=== PATIENT | female | born 1940 | race Caucasian/White ===

== ENCOUNTER → 2022-03-05 | Outpatient (CLI) | payer MEDICARE | END | disposition home or self-care (01) | LOC: LABPAT 10:48 | PROVIDERS: ATTEND Orthopaedic Surgery | DX: Z01.812 Encounter for preprocedural laboratory examination (principal); Z22.322 Carrier or suspected carrier of Methicillin resistant Staphylococcus aureus; M19.012 Primary osteoarthritis, left shoulder | CPT/HCPCS: 87070 ==

== ENCOUNTER 2022-04-15 05:53 | Observation (INO) | payer MEDICARE ==
[2022-04-11 15:21] VITALS: BMI 26.2
--- NOTE | 2022-04-14 11:19 | HP ---
HISTORY AND PHYSICAL CHIEF COMPLAINT: Left shoulder pain. HISTORY OF PRESENT ILLNESS: The patient is an 82-year-old [id number] retired female who presents with progressive left shoulder pain for the past several years, worsening recently. She is having a difficult time trying to do any overhead activity. She also notes significant weakness and significant night symptoms. She has tried medications in addition to injections and previous exercises, without much relief. She notes daily pain that limits her significantly. PAST MEDICAL HISTORY: Significant for hypertension, hypercholesterolemia along with arthritis. PAST SURGICAL HISTORY: Significant for right total shoulder arthroplasty, section and appendectomy. CURRENT MEDICATIONS: Aleve, aspirin, atorvastatin, lisinopril, omeprazole and alendronate. ALLERGIES: SHE NOTED ALLERGIES TO PENICILLIN. FAMILY HISTORY: Significant for cancer. SOCIAL HISTORY: Negative for current tobacco or alcohol use. REVIEW OF SYSTEMS: Sixteen-point review of systems otherwise reviewed and is noncontributory. PHYSICAL EXAMINATION: On examination, the patient is approximately 4 feet 11 inches, 130 pounds of mesomorphic habitus. HEENT exam is nonfocal. Neck is supple. On examination of her left shoulder, she is tender about the anterior subacromial space and glenohumeral joint. She has moderate subacromial crepitus. Active range of motion: Forward elevation 60 degrees, external rotation with the arm at side 10 degrees, internal rotation to L4. Motor strength 3+/5 for abduction and external rotation. Impingement test, Neer test, and Speed test are positive. Her distal neurovascular exam appears intact in the left upper extremity. X-rays to include AP, outlet and axillary lateral views of the left shoulder show severe glenohumeral joint osteoarthrosis with subchondral sclerosis along with cystic changes along the greater tuberosity. The humeral head to acromial distance appears to be diminished. IMPRESSION: Left rotator cuff arthropathy/severe glenohumeral joint osteoarthrosis. RECOMMENDATIONS: I talked to the patient at length regarding her condition along with treatment options. At this point she is quite symptomatic and limited, having both pain and weakness despite attempted conservative measures. After thorough discussion, she opts to proceed with surgery. We will plan to proceed with left reverse total shoulder arthroplasty. We will likely keep the patient for a 23-hour hold postoperatively. Risks and benefits were discussed at length in layman's terms. MMODL / IJN: [id number] /
[~2022-04-15 05:53] MED LIST: ACETAMINOPHEN TAB 500 MG TAB PO PRN; MELOXICAM 7.5 MG TAB PO PRN; TRANEXAMIC ACID IN NACL,ISO-OS 1,000 MG in SALINE 1 100ML.BAG IVPB PRN
[2022-04-15] MEDS ORDERED: LIDOCAINE 1% (10MG/ML) FOR IV START INTRADERMA PRN (05:58)
[2022-04-15] MEDS ORDERED: ONDANSETRON 4 MG/2 ML VIAL IVP ONE ×2 (05:58→06:57)
[2022-04-15] MEDS ORDERED: HYDROmorphone 0.5 MG/0.5 ML SYRINGE IVP PRN (05:58)
[2022-04-15] MEDS ORDERED: MIDAZOLAM 2 MG/2 ML VIAL IV PRN (05:58)
[2022-04-15] MEDS ORDERED: DEXAMETHASONE SOD PHOSPHATE 4 MG/ML 1 ML VIAL IV ONE (05:58)
[2022-04-15] MEDS: LACTATED RINGERS 1,000 ML IV SCH ×2 (06:46→23:57)
[2022-04-15] MEDS ORDERED: DEXAMETHASONE SOD PHOSPHATE 4 MG/ML 1 ML VIAL IVP ONE (06:57)
[2022-04-15] MEDS ORDERED: MIDAZOLAM 2 MG/2 ML VIAL IVP ONE ×3 (07:09→07:24)
[2022-04-15] MEDS ORDERED: IV FLUID CONTINUATION 1,000 ML IV ONE (07:45)
--- NOTE | 2022-04-15 08:06 | P.ANPRN ---
Procedure Note - Anesthesia - Nerve Block Performed Left Interscalene Single Time Out Performed: Yes Date of Procedure: 04/15/22 Procedure Start Time: :08 Procedure Stop Time: :18 Location of Patient: PreOp Indication: Requested by Surgeon Specifically requested for management of pain by DrMook: Conor Resendiz Sedation Type: Sedate with meaningful contact maintained Preparation: Sterile Prep Position: Supine Needle Types: Pajunk Needle Gauge: 21 Ultrasound used to visualize needle placement: Yes Ultrasound used to observe medication spread: Yes Injectate: 0.5% Ropivacaine (see comment for volume) (25 ml) Blood Aspirated: No Pain Paresthesia on Injection Noted: No Resistance on Injection: Normal Image Stored and Saved: Yes Events: Other (see comment) (Please refer to the note dictated separately)
--- NOTE | 2022-04-15 08:08 | P.PN ---
Progress Note - Text Progress Note Date: 04/15/22 Immediately after I finished the interscalene block,at 07:20 patient became unresponsive, and she started having seizure, patient received 1 mg of Versed in the preop to do the interscalene block, and she was communicating with us during the procedure, and immediately after we finished ,the patient became unresponsive, and she started having seizure, we immediately placed a #100% oxygen, vital signs heart rate is sinus tachycardia with heart rate more than 130, blood pressure more than 130/80, saturation more than 95% , patient received 2 mg of Versed followed with another 2 mg later on. To stop the seizure activity, patient immediately intubated, and placed on 100% oxygen, intralipids was available ,but it was not used because patient was hemodynamically stable, except the sinus tachycardia, discussed with the family that incident, and explained to them that the patient will be admitted ,and we will Place neurology consultation, patient was transferred to recovery room and she was placed on the ventilator ,and then she was extubated at 07:59, patient was following commands . Patient will be transferred to the floor
--- NOTE | 2022-04-15 11:25 | P.PN ---
Progress Note - Text Progress Note Date: 04/15/22 Patient's left shoulder procedure was canceled for today due to the adverse outcomes after the patient received the interscalene block. Anesthesia was able to follow with the patient in the preop/phase I area. Patient is being admitted to the cardiac stepdown unit for observation with telemetry monitoring. Consults have been placed for both internal medicine and neurology for assessment. Anticipate primary admission to be transferred to internal medicine. We will follow the patient during her inpatient stay. Please contact our service with any further questions.
--- NOTE | 2022-04-15 15:16 | P.CONS ---
History of Present Illness - Reason for Consult Consult date: 04/15/22 Medical management, intraoperative seizure activity - History of Present Illness This is a pleasant 82-year-old female who was recently brought in under orthopedic services for an elective left shoulder total arthroplasty with Dr. Resendiz. Apparently patient was in the preop phase and working on receiving a nerve block to the left shoulder and stopped responding to verbal stimuli and started actively seizing and bit her tongue and was minimally responsive with PURCHASING AND CLAIMS SUPERVISOR at the bedside. She received 2 doses of Versed and seizure activity stopped and surgical procedure was aborted. Patient was intubated and closely monitored and extubated successfully. Patient does have a past medical history of hypertension, high cholesterol, gastroesophageal reflux disease, osteoarthritis and follows with Dr. Noelle Soto in the outpatient setting. Patient was admitted for further evaluation with neurology placed on consult. Review Of Systems: Constitutional: No fever, no chills, no night sweats. No weight change. No wea kness, fatigue or lethargy. No daytime sleepiness. EENT: No headache. No blurred vision or double vision, no loss of vision. No loss of Hearing, no ringing in the ears, no dizziness. No nasal drainage or congestion. No epistaxis. No sore throat. Lungs: No shortness of breath, cough, no sputum production. No wheezing. Cardiovascular: No chest pain, no lower extremity edema. No palpitations. No paroxysmal nocturnal dyspnea. No orthopnea. No lightheadedness or dizziness. No syncopal episodes. Abdominal: No abdominal pain. No nausea, vomiting. No diarrhea. No constipation. No bloody or tarry stools.. No loss of appetite. Genitourinary: No dysuria, increased frequency, urgency. No urinary retention. Musculoskeletal: No myalgias. No muscle weakness, no gait dysfunction, no terell quent falls. No back pain. No neck pain. Integumentary: No wounds, no lesions. No rash or pruritus. No unusual bruising. No change in hair or nails. Neurologic: No aphasia. No facial droop. No change in mentation. No head injury. No headache. No paralysis. No paresthesia. Reports some left neck discomfort on palpation Psychiatric: No depression. No anxiety. No mood swings. Endocrine: No abnormal blood sugars. No weight change. No excessive sweating or thirst. No cold intolerance. Rest of the 14 point review of systems were negative except for mentioned above PHYSICAL EXAMINATION: GENERAL: The patient is alert and oriented x4, Well developed, well nourished. HEENT: Pupils are round and equally reacting to light. EOMI. no scleral icterus. No conjunctival pallor. Normocephalic, atraumatic. No pharyngeal erythema. No thyromegaly. Tongue was bit but no active bleeding noted CARDIOVASCULAR: S1 and S2 muffled PULMONARY: diminished breath sounds bilaterally with no wheezing or rhonchi noted. ABDOMEN: soft. Nontender on exam. non-distended, normoactive bowel sounds. No palpable organomegaly. MUSCULOSKELETAL: No joint swelling or deformity. EXTREMITIES: No cyanosis, clubbing, or pedal edema. NEUROLOGICAL: Gross neurological examination did not reveal any focal deficits. SKIN: No rashes. Assessment: Left rotator cuff arthropathy secondary to severe glenohumeral joint osteoarthritis Seizure like activity after receiving nerve block during preop for left shoulder surgery this morning with no history of seizures Hypertension Hyperlipidemia Osteoarthritis GI prophylaxis DVT prophylaxis Full code Plan: Recommend to continue with current medications and management per orthopedic services. Patient was scheduled for left shoulder arthroplasty with Dr. Resendiz this morning and was receiving nerve block and started having seizure-like activity with no past medical history of seizures and required 2 doses of Versed and in that time patient had been intubated and successfully extubated and admitted under orthopedic services with neurology consulted for this seizure- like activity. Patient is alert and oriented 3 and denies loss of bowel or urine incontinence. Patient reports she had a good night of sleep last night and was nothing by mouth at midnight and denies any history of hypoglycemia and was fine this morning on arrival to the hospital. Patient does follow with Dr. Noelle Soto in the outpatient setting. Patient did not have any of her medications this morning and she normally takes a blood pressure pill, a statin, and a baby aspirin and these were held this morning. Will resume diet and appropriate home medications and continue to hold blood pressure medications for now and closely monitor with vital signs every shift and will follow-up with some labs BMP and CBC and magnesium and diet has been resumed. Patient reports she will be following up in the next 2-3 weeks outpatient for surgical intervention again. We will continue to follow with orthopedics during this hospitalization. Thank you for this consultation. Await neurology evaluation. The impression and plan of care has been dictated by Falguni Gifford, nurse practitioner as directed. Dr. Danette MD I have performed a history and examination and MDM of this patient, discussed the same with the dictator, and agree with the dictator's assessment and plan as written ,documented as a scribe. Based on total visit time, I have performed more than 50% of the visit. Any additional findings or plans will be noted. Past Medical History Past Medical History: GERD/Reflux, Hyperlipidemia, Hypertension, Osteoarthritis (OA) History of Any Multi-Drug Resistant Organisms: None Reported Past Surgical History: Appendectomy, Breast Surgery, Section, Joint Replacement Additional Past Surgical History / Comment(s): 10/21/16 total R shoulder arthroplasty. RT BREAST BX, COLONOSCOPY, BILAT CATARACTS REMOVED Past Anesthesia/Blood Transfusion Reactions: No Reported Reaction Additional Past Anesthesia/Blood Transfusion Reaction / Comm: Nerve block caused possible seizure. Smoking Status: Former smoker - Past Family History Father Family Medical History: Cancer Additional Family Medical History / Comment(s): LUNG Mother Family Medical History: Osteoarthritis (OA) Medications and Allergies Home Medications Medication Instructions Recorded Confirmed Type Cholecalciferol [Vitamin D3] 2,000 unit PO DAILY 10/14/16 04/15/22 History Multivitamins, Thera [Multivitamin] 1 tab PO DAILY 10/14/16 04/15/22 History Omeprazole [PriLOSEC] 20 mg PO DAILY 10/14/16 04/15/22 History Aspirin [Adult Low Dose Aspirin EC] 81 mg PO DAILY 04/11/22 04/15/22 History Atorvastatin [Lipitor] 20 mg PO HS 04/11/22 04/15/22 History Lisinopril-Hctz 20-12.5 mg 0.5 tab PO HS 04/11/22 04/15/22 History [Zestoretic 20-12.5] Naproxen Sodium [Aleve] 220 mg PO Q12HR 04/11/22 04/15/22 History Turmeric Root Extract [Turmeric] 500 mg PO DAILY 04/11/22 04/15/22 History Allergies Allergy/AdvReac Type Severity Reaction Status Date / Time Penicillins Allergy Anaphylaxis Verified 04/15/22 06:28 red,yellow,blue dye Allergy Unknown Uncoded 04/15/22 06:28 Physical Exam Vitals: Vital Signs Temp Pulse Resp BP Pulse Ox FiO2 04/15/22 11:02 97.9 F 88 18 116/71 95 04/15/22 10:30 82 16 123/56 99 04/15/22 10:00 89 16 119/56 100 04/15/22 09:14 86 16 104/59 99 04/15/22 08:59 88 16 102/59 98 04/15/22 08:44 93 16 105/55 98 04/15/22 08:29 92 16 113/55 99 04/15/22 08:14 87 16 126/63 100 04/15/22 07:59 112 H 18 144/66 100 04/15/22 07:48 100 04/15/22 07:45 108 H 16 172/77 100 04/15/22 07:40 118 H 148/68 100 04/15/22 07:35 123 H 157/72 100 04/15/22 07:32 120 H 147/70 100 04/15/22 07:27 121 H 157/83 98 04/15/22 07:25 104 H 137/63 97 04/15/22 07:23 126 H 148/98 100 04/15/22 06:30 98.0 F 70 14 118/57 99 Intake and Output 04/14/22 04/15/22 04/15/22 22:59 06:59 14:59 Intake Total 750 Balance 750 Intake: IV 750 Other: Weight 60 kg 60 kg Assessment and Plan Time with Patient: Greater than 30
[2022-04-15 15:35] LABS: Basophils % (A) 0 %; Eosinophils % (A) 0 %; HCT 35.5 % (34.0-46.0); Lymphocytes % (A) 17 %; MCH 33.4 pg (25.0-35.0); MCHC 33.7 g/dL (31.0-37.0); MCV 99.1 fL (80.0-100.0); Macrocytosis Slight; Mean Platelet Volume 7.2; Monocytes # (A) 0.1 k/uL (0-1.0); Monocytes % (A) 2 %; Neutrophils # (A) 4.7 k/uL (1.3-7.7); Neutrophils % (A) 80 %; Platelet Count 340 k/uL (150-450); RBC 3.58 m/uL (3.80-5.40); RDW 14.8 % (11.5-15.5); WBC 5.8 k/uL (3.8-10.6)
[2022-04-15 15:51] LABS: Calcium 8.9 mg/dL (8.4-10.2); Magnesium 1.9 mg/dL (1.6-2.3); Potassium 4.7 mmol/L (3.5-5.1)
--- NOTE | 2022-04-15 17:21 | P.CNNES ---
History of Present Illness Consult date: 04/15/22 Requesting physician: Kevin Marino Reason for Consult: seizure History of Present Illness: This is a 82-year-old woman arthritis of bilateral disorder, syncope was recently brought under orthopedic service for elective left shoulder total arthroplasty and it seems while the patient was receiving her block to the left shoulder she stopped responding and was actively seizing and bit his tongue and was minimally responsive with SETTER COLD ROLLING MACHINE at bedside. Some of the history is obtained from medical record the. The patient is accompanied with her daughter was at bedside. According to patient she denies any history of seizures and then that today and she was getting the nerve block to the left shoulder she was told she had a seizure but she does not recall the event. All she knows is that her left side of the tongue is sore area according to the anesthesiologist he reported that the patient the finish that interscalene block at 7:20 AM today then became unresponsive and started having seizure. It is reported the patient received 2 mg of Versed followed by another 2 mg later on as a result patient's was immedi ately intubated and placed on 100% oxygen. The surgical procedure was aborted because of her seizure. The patient was monitored and was extubated successfully. Of note the patient states that currently her entire body feels sore. She denies any history of seizures as the reported earlier but stated that she had a syncopal episode in last one was about 10 years ago and this happens going from sitting or lying to standing position. She denies any family history of seizures. She denies any history of stroke or TIAs in the past. She rarely drinks alcohol. Denies any illicit drug use. Review of Systems Review of system: The 12 point system was reviewed and apparent positive and negative per HPI. Past Medical History Past Medical History: GERD/Reflux, Hyperlipidemia, Hypertension, Osteoarthritis (OA) History of Any Multi-Drug Resistant Organisms: None Reported Past Surgical History: Appendectomy, Breast Surgery, Section, Joint Replacement Additional Past Surgical History / Comment(s): 10/21/16 total R shoulder arthroplasty. RT BREAST BX, COLONOSCOPY, BILAT CATARACTS REMOVED Past Anesthesia/Blood Transfusion Reactions: No Reported Reaction Additional Past Anesthesia/Blood Transfusion Reaction / Comment(s): Nerve block caused possible seizure. Smoking Status: Former smoker - Past Family History Father Family Medical History: Cancer Additional Family Medical History / Comment(s): LUNG Mother Family Medical History: Osteoarthritis (OA) Medications and Allergies Home Medications Medication Instructions Recorded Confirmed Type Cholecalciferol [Vitamin D3] 2,000 unit PO DAILY 10/14/16 04/15/22 History Multivitamins, Thera [Multivitamin] 1 tab PO DAILY 10/14/16 04/15/22 History Omeprazole [PriLOSEC] 20 mg PO DAILY 10/14/16 04/15/22 History Aspirin [Adult Low Dose Aspirin EC] 81 mg PO DAILY 04/11/22 04/15/22 History Atorvastatin [Lipitor] 20 mg PO HS 04/11/22 04/15/22 History Lisinopril-Hctz 20-12.5 mg 0.5 tab PO HS 04/11/22 04/15/22 History [Zestoretic 20-12.5] Naproxen Sodium [Aleve] 220 mg PO Q12HR 04/11/22 04/15/22 History Turmeric Root Extract [Turmeric] 500 mg PO DAILY 04/11/22 04/15/22 History Allergies Allergy/AdvReac Type Severity Reaction Status Date / Time Penicillins Allergy Anaphylaxis Verified 04/15/22 06:28 red,yellow,blue dye Allergy Unknown Uncoded 04/15/22 06:28 Physical Examination - Vital Signs Vital Signs: Vital Signs Temp Pulse Resp BP Pulse Ox FiO2 04/15/22 15:01 97.9 F 76 18 92/77 95 04/15/22 13:34 88 04/15/22 11:02 97.9 F 88 18 116/71 95 04/15/22 10:30 82 16 123/56 99 04/15/22 10:00 89 16 119/56 100 04/15/22 09:14 86 16 104/59 99 04/15/22 08:59 88 16 102/59 98 04/15/22 08:44 93 16 105/55 98 04/15/22 08:29 92 16 113/55 99 04/15/22 08:14 87 16 126/63 100 04/15/22 07:59 112 H 18 144/66 100 04/15/22 07:48 100 04/15/22 07:45 108 H 16 172/77 100 04/15/22 07:40 118 H 148/68 100 04/15/22 07:35 123 H 157/72 100 05/24/22 07:32 120 H 147/70 100 04/15/22 07:27 121 H 157/83 98 04/15/22 07:25 104 H 137/63 97 04/15/22 07:23 126 H 148/98 100 04/15/22 06:30 98.0 F 70 14 118/57 99 Intake and Output 04/15/22 04/15/22 04/15/22 06:59 14:59 22:59 Intake Total 750 Balance 750 Intake: IV 750 Other: Voiding Method Toilet # Voids 1 Weight 60 kg 60 kg GENERAL: The patient is lying in bed and is not in acute distress. CHEST: The heart rate is regular rate rhythm. No murmurs to auscultation. LUNG: Clear to auscultation bilaterally no wheezing noted throughout. Not labored breathing. ABDOMEN/GI: Bowel sounds present in all 4 quadrants. No tenderness to palpation throughout. NEUROLOGICAL: Higher mental function: The patient is awake, alert, oriented to self, place and time. Patient is following commands. No aphasia and no neglect. Cranial nerves: The pupils are round, equal and reactive to light and accommodation. Visual mcclain are full to confrontation throughout. Extraocular movement is intact no nystagmus is noted. Facial sensation is normal to touch throughout. The facial strength is normal throughout. Hearing is normal bilaterally to hand rub. Tongue is midline and moved [id number] without any difficulty. No dysarthria is noted. Shoulder shrug is normal bilaterally. Motor: The strength is left upper extremity is 4+ and limited because of shoulder limitation. Normal bilateral hand bridge inspector. Otherwise 5 over 5 throughout. Normal tone and bulk. Cerebellum: Normal finger to nose heel to chin bilaterally. Sensation: Sensation is normal to touch throughout. Reflexes (right/left):1+ throughout. Plantars are downgoing bilaterally. Results - Laboratory Findings CBC and BMP: 04/15/22 15:07 04/15/22 15:07 Abnormal Lab Findings: Abnormal Labs 04/15/22 04/15/22 15:07 15:07 RBC 3.58 L Sodium 134 L BUN 27 H Glucose 178 H Assessment and Plan Assessment: New onset seizure (reported after completion of nerve block to shoulder). Seems provoked. Does not have history of seizures Syncope (last syncope was 10 years) Arthritis of bilateral disorder s/p surgery of the right shoulder Plan: I ordered a CT of the head without contrast, a routine EEG. I'll not start the patient on antiepileptic drug unless there is a performed discharges or seizure on the EEG or if there is any significant abnormality on the CAT scan which would lead to seizure. Ordered carotid duplex. Ordered orthostatic vitals. Every 4 hours neuro checks On seizure because his seizure pads We'll defer the rest of the medical management to the primary team as well as orthopedic team. The plan is discussed with the patient and her daughter was at bedside. Thank you for the consultation. Russell Seaman M.D. Neuro-hospitalist Time with Patient: Greater than 30
[2022-04-15] MEDS ORDERED: ACETAMINOPHEN TAB 325 MG TAB PO PRN (19:47)
--- NOTE | 2022-04-15 19:47 | CT ---
EXAMINATION TYPE: CT brain wo con DATE OF EXAM: 04/15/2022 COMPARISON: None HISTORY: Seizure, dizziness CT DLP: 1086.4 mGycm Automated exposure control for dose reduction was used. There is mild cerebral atrophy. There is no mass effect or midline shift. No sign of intracranial hem orrhage. Calvarium is intact. Skull base is intact. There is normal aeration of the mastoid sinuses. IMPRESSION: Negative unenhanced head CT scan. Brain appears normal for age.
[2022-04-15] MEDS ORDERED: ATORVASTATIN 20 MG TAB PO SCH (21:00)
[2022-04-16 08:37] VITALS: BP 112/70; PULSE 80; RESP 16; TEMP 97.8
[2022-04-16] MEDS ORDERED: ASPIRIN 81 MG PO SCH (09:00)
[2022-04-16] MEDS ORDERED: PANTOPRAZOLE 40 MG TABLET PO SCH (09:00)
--- NOTE | 2022-04-16 10:20 | P.PN ---
Subjective Progress Note Date: 04/16/22 Principal diagnosis: Seizure Patient evaluated today at bedside, she is resting comfortably. She is very eager to be discharged home. She's had no acute events overnight. She has been evaluated by both internal medicine and neurology. Objective - Vital Signs Vital signs: Vital Signs Temp 97.8 F 04/16/22 08:00 Pulse 80 04/16/22 08:00 Resp 16 04/16/22 08:00 BP 112/70 04/16/22 08:00 Pulse Ox 82 L 04/16/22 08:00 FiO2 100 04/15/22 07:48 Intake & Output 04/15/22 04/16/22 04/16/22 18:59 06:59 18:59 Intake Total 750 Balance 750 Weight 60 kg Intake: IV 750 Other: Voiding Method Toilet Toilet # Voids 1 2 - Labs CBC & Chem 7: 04/15/22 15:07 04/15/22 15:07 Labs: Abnormal Lab Results - Last 24 Hours (Table) 04/15/22 04/15/22 Range/Units 15:07 15:07 RBC 3.58 L (3.80-5.40) m/uL Sodium 134 L (137-145) mmol/L BUN 27 H (7-17) mg/dL Glucose 178 H (74-99) mg/dL Assessment and Plan Assessment: Seizure Left shoulder rotator cuff arthropathy with severe glenohumeral joint arthritis Other medical comorbidities Plan: Discussed with patient at discharge and be pending neurology/internal medicine recommendations. She is scheduled to undergo a EEG along with carotid study later today. Recommending follow-up with Dr. Resendiz in the outpatient setting after discharge to discuss surgical scheduling We'll discuss with internal medicine primary admission Please contact our service with any questions Time with Patient: Less than 30
--- NOTE | 2022-04-16 11:35 | P.PN ---
Subjective Progress Note Date: 04/16/22 The patient is seen at bedside and feels she is doing well. No further seizure- like activity. Objective - Vital Signs Vital signs: Vital Signs Temp 97.8 F 04/16/22 08:00 Pulse 80 04/16/22 08:00 Resp 16 04/16/22 08:00 BP 112/70 04/16/22 08:00 Pulse Ox 82 L 04/16/22 08:00 FiO2 100 04/15/22 07:48 Intake & Output 04/15/22 04/16/22 04/16/22 18:59 06:59 18:59 Intake Total 750 Balance 750 Weight 60 kg Intake: IV 750 Other: Voiding Method Toilet Toilet # Voids 1 2 - Exam GENERAL: The patient is lying in bed and is not in acute distress. NEUROLOGICAL: Higher mental function: The patient is awake, alert, oriented to self, place and time. Patient is following commands. No aphasia and no neglect. Cranial nerves: The pupils are round, equal and reactive to light and accommodation. Visual mcclain are full to confrontation throughout. Extraocular movement is intact no nystagmus is noted. Facial sensation is normal to touch throughout. The facial strength is normal throughout. Hearing is normal bilaterally to hand rub. Tongue is midline and moved [id number] without any difficulty. No dysarthria is noted. Shoulder shrug is normal bilaterally. Motor: The strength is left upper extremity is 4+ and limited because of shoulder limitation. 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 Otherwise 5 over 5 throughout. Normal tone and bulk. Cerebellum: Normal finger to nose heel to chin bilaterally. Sensation: Sensation is normal to touch throughout. Reflexes (right/left):1+ throughout. Plantars are downgoing bilaterally. SOME OF THE WORK-UP: Orthostatic vitals is negative CT of the head is reported as negative unenhanced head CT scan. I personally reviewed the CT of the head and I agree with the report. - Labs CBC & Chem 7: 04/15/22 15:07 04/15/22 15:07 Labs: Abnormal Lab Results - Last 24 Hours (Table) 04/15/22 04/15/22 Range/Units 15:07 15:07 RBC 3.58 L (3.80-5.40) m/uL Sodium 134 L (137-145) mmol/L BUN 27 H (7-17) mg/dL Glucose 178 H (74-99) mg/dL Assessment and Plan Assessment: New onset seizure (reported after completion of nerve block to shoulder). Seems provoked. 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 I'll not start the patient on antiepileptic drug unless there is epileptiform discharges or seizure on the EEG. Pending carotid duplex. Every 4 hours neuro checks On seizure because his seizure pads We'll defer the rest of the medical management to the primary team as well as orthopedic team. Recommend patient to follow-up with neurologist as outpatient within 1-2 weeks. The plan is discussed with the patient. If EEG is negative for seizure or epileptiform discharge patient is clear for discharge from neurological perspective. Russell Seaman M.D. Neuro-hospitalist Time with Patient: Less than 30
--- NOTE | 2022-04-16 14:32 | US ---
EXAMINATION TYPE: US carotid duplex BILAT DATE OF EXAM: 04/16/2022 COMPARISON: NONE CLINICAL HISTORY: syncope. Exam done portable EXAM MEASUREMENTS: RIGHT: Peak Systolic Velocity (PSV) cm/sec ----- Right CCA: 57.2 ----- Right ICA: 112.6 ----- Right ECA: 53.7 ICA/CCA ratio: 2.0 RIGHT: End Diastole cm/sec ----- Right CCA: 14.5 ----- Right ICA: 29.7 ----- Right ECA: 5.8 LEFT: Peak Systolic Velocity (PSV) cm/sec ----- Left CCA: 53.2 ----- Left ICA: 67.1 ----- Left ECA: 63.6 ICA/CCA ratio: 1.3 LEFT: End Diastole cm/sec ----- Left CCA: 13.7 ----- Left ICA: 20.7 ----- Left ECA: 6.9 VERTEBRALS (direction of flow): Right Vertebral: Antegrade Left Vertebral: Antegrade Rhythm: Normal No significant stenosis . There is a large plaque within the right carotid bulb. Significant flow-ponce iting stenosis however is not evident by velocity measurements. IMPRESSION: 1. No significant flow-limiting stenosis . Criteria for Assigning % of Stenosis / Diameter reduction (Estimation based on the indirect measurements of the internal carotid artery velocities (ICA PSV). 1. Normal (no stenosis)=ICA PSV < 125 cm/s: ratio < 2.0: ICA EDV<40 cm/s. 2. Less than 50% stenosis=ICA PSV < 125 cm/s: ratio < 2.0: ICA EDV<40 cm/s. 3. 50 to 69% stenosis=ICA PSV of 125 to 230 cm/s: ration 2.0 ? 4.0: ICA EDV 40-100 cm/s. 4. Greater than 70% stenosis to near occlusion= ICA PSV > 230 cm/s: ratio > 4.0: ICA EDV > 100 cm/s. 5. Near occlusion= ICA PSV velocities may be low or undetectable: variable ratio and ICA EDV. 6. Total occlusion=unable to detect flow.
--- NOTE | 2022-04-16 15:43 | EEG ---
ELECTROENCEPHALOGRAM REPORT DATE OF SERVICE: 04/16/2022. CLINICAL HISTORY: This is an 82-year-old woman with witnessed seizure-like activity after having a procedure on 04/15/2022. The video EEG is obtained to evaluate for seizure epileptiform activity. RELEVANT MEDICATION: The patient is not on any antiepileptic drugs. EEG TYPE: A routine 21-channel EEG is performed with video using the 10/20 electrode placement system. DESCRIPTION: Only wakefulness is obtained. During awake state the posterior-dominant rhythm consists of low to moderate voltage of 9 hertz activity that is well modulated and sustained. There is no physiological stage II sleep architecture. There is no focal slowing. ACTIVATION PROCEDURE: Photic stimulation did not evoke a posterior driving response. There is no abnormality during the photic stimulation. Hyperventilation is not performed. CLINICAL INTERPRETATION: This is a normal routine EEG. There is no focal slowing, epileptiform discharge or seizure on the EEG. Clinical correlation is recommended. HENNA / ISAIAS: [id number] / [email or web address]
--- NOTE | 2022-04-17 00:27 | P.DS ---
Providers Date of admission: 04/15/22 08:51 Attending physician: Navi Tan MD Consults: 04/15/22 08:43 Consult Physician Routine Consulting Provider: Russell Seaman Consult Reason/Comments: seizure Do you want consulting provider notified?: Yes Consult Physician Routine Consulting Provider: Navi Tan Consult Reason/Comments: Medical Management Do you want consulting provider notified?: Yes Primary care physician: Noelle Soto Hospital Course: Diagnoses: Provoked seizure secondary to nerve block, resolved. EEG negative CT negative and neurologist. Patient for discharge, no AED Left rotator cuff arthropathy secondary to severe glenohumeral joint osteoarthritis Hypertension Hyperlipidemia Osteoarthritis Hospital course his is a pleasant 82-year-old female who was recently brought in under orthopedic services for an elective left shoulder total arthroplasty with Dr. Resendiz. Apparently patient was in the preop phase and working on receiving a nerve block to the left shoulder and stopped responding to verbal stimuli and started actively seizing and bit her tongue and was minimally responsive with TANKER SERVICEMAN at the bedside. Patient evaluated by neurologist after her seizures cont rolled. She is back to basic mental status, fully awake and oriented, she denies any neurological symptoms, no focal neurological deficit. Her workup was unremarkable including CT of the brain, carotid duplex and EEG. Neurologist has cleared The patient for discharge on no medication for seizure, I discussed the case with Dr. Seaman today and he informed me if EEG and CT is negative then patient before discharge from his standpoint Also orthopedic team evaluated the patient and cleared her for discharge. Patient today was sitting in bed stating she is back to normal, she denies chest pain or dyspnea, no headache or blurred vision or slurred speech. No weakness or numbness. No any further involuntarily activity or seizure-like activity. No change in urine or bowel habits. No fever. Patient was returned to go home today. Problems and management plan were discussed with the patient and he verbalized understanding and acceptance Patient was found stable and can be discharged home however he needs follow-up as an outpatient. Patient was instructed to follow up with PCP Dr. Soto within one week and patient agrees patient was instructed to follow up with the neurologist N7 to 10 days, several physicians recommended for her including Dr. Bowen and Dr. Kodak Benavidez and Dr. kodak Blackmon, and she verbalized understanding and acceptance Patient also instructed to follow up with her orthopedic Dr. Martín in 1-2 weeks and she agrees Physical exam Gen: patient is a AAOx3, no distress CVS: S1-S2, RRR, no murmur Lungs: B/L CTA, no wheezing Abdomen: soft, no distention, no tenderness, positive bowel sounds Extremity: no leg edema or induration Time spent more than 35 minute Plan - Discharge Summary Discharge Rx Participant: Yes New Discharge Prescriptions: Continue Omeprazole [PriLOSEC] 20 mg PO DAILY Cholecalciferol [Vitamin D3 (25 Mcg = 1000 Iu)] 2,000 unit PO DAILY Multivitamins, Thera [Multivitamin (formulary)] 1 tab PO DAILY Aspirin [Adult Low Dose Aspirin EC] 81 mg PO DAILY Atorvastatin [Lipitor] 20 mg PO HS Turmeric Root Extract [Turmeric] 500 mg PO DAILY Discontinued Lisinopril-Hctz 20-12.5 mg [Zestoretic 20-12.5] 0.5 tab PO HS Naproxen Sodium [Aleve] 220 mg PO Q12HR Discharge Medication List Cholecalciferol [Vitamin D3 (25 Mcg = 1000 Iu)] 2,000 unit PO DAILY 10/14/16 [History] Multivitamins, Thera [Multivitamin (formulary)] 1 tab PO DAILY 10/14/16 [History] Omeprazole [PriLOSEC] 20 mg PO DAILY 10/14/16 [History] Aspirin [Adult Low Dose Aspirin EC] 81 mg PO DAILY 04/11/22 [History] Atorvastatin [Lipitor] 20 mg PO HS 04/11/22 [History] Turmeric Root Extract [Turmeric] 500 mg PO DAILY 04/11/22 [History] Follow up Appointment(s)/Referral(s): Jj Tyler MD [REFERRING] - 10 Days (Neurologist) Noelle Soto MD [Primary Care Provider] - 1 Week Dilan Bowen MD [Medical Doctor] - 10 Days (Neurologist) Kenna Tyler MD [REFERRING] - 10 Days (Neurologist) Conor Resendiz MD [STAFF PHYSICIAN] - 1 Week Patient Instructions/Handouts: Epilepsy (DC) Activity/Diet/Wound Care/Special Instructions: Resume previous diet Activity is restricted until you see your doctor Discharge Disposition: HOME SELF-CARE
== END 2022-04-16 17:05 | disposition home or self-care (01) ==
LOC: OR 05:53 → 3SCARD 08:51 → OR 08:52
PROVIDERS: ADMIT Internal Medicine; ATTEND Internal Medicine
DX: M19.012 Primary osteoarthritis, left shoulder (principal); Z53.8 Procedure and treatment not carried out for other reasons; R56.9 Unspecified convulsions; I10 Essential (primary) hypertension; E78.00 Pure hypercholesterolemia, unspecified; Z98.891 History of uterine scar from previous surgery; Z98.890 Other specified postprocedural states; Z90.49 Acquired absence of other specified parts of digestive tract; Z79.1 Long term (current) use of non-steroidal anti-inflammatories (NSAID); Z79.82 Long term (current) use of aspirin; Z79.899 Other long term (current) drug therapy; Z88.0 Allergy status to penicillin; Z80.9 Family history of malignant neoplasm, unspecified; E78.5 Hyperlipidemia, unspecified; K21.9 Gastro-esophageal reflux disease without esophagitis; Z88.2 Allergy status to sulfonamides; Z91.02 Food additives allergy status; Z98.42 Cataract extraction status, left eye; Z98.41 Cataract extraction status, right eye
CPT/HCPCS: 94002; 95816; 80048; 83735; 85025; 93880; 70450; G0378 ×2; J2250; J1100; J2405

== ENCOUNTER 2022-05-20 05:58 | Day surgery (SDC) | payer MEDICARE ==
[2022-05-16 11:10] VITALS: BMI 25.4
--- NOTE | 2022-05-19 11:39 | HP ---
HISTORY AND PHYSICAL CHIEF COMPLAINT: Left shoulder pain. HISTORY OF PRESENT ILLNESS: Patient is an 82-year-old [id number] female who presents with progressive left shoulder pain for the past several years, worsening recently. She has significant weakness along with night symptoms. She has tried medications along with injections and exercises, without much relief. She notes daily pain significantly limits her. She previously was scheduled to undergo a left reverse total shoulder arthroplasty. However, that was canceled secondary to seizure activity after placement of the block. PAST MEDICAL HISTORY: Significant for hypertension, hypercholesterolemia and arthritis. PAST SURGICAL HISTORY: Significant right total shoulder arthroplasty, section and appendectomy. CURRENT MEDICATIONS: Aleve, aspirin, atorvastatin, lisinopril, omeprazole and alendronate. ALLERGIES: PENICILLIN. FAMILY HISTORY: Significant for cancer. SOCIAL HISTORY: Negative for current tobacco or alcohol use. REVIEW OF SYSTEMS: 16-point review of systems otherwise reviewed and noncontributory. PHYSICAL EXAMINATION: On examination, patient is approximately 4 foot 11 inches tall, 130 pounds of mesomorphic habitus. HEENT exam is nonfocal. NECK is supple. On examination of left shoulder, she is tender about the anterior subacromial space and glenohumeral joint. She has moderate subacromial crepitus. Active range of motion, forward elevation 60 degrees, external rotation with the arm at side 10 degrees, internal rotation to L4. Motor strength 3+/5 for abduction and external rotation. Impingement test, Neer tests, and Speed test are positive. Her distal neurovascular exam appears intact in the left upper extremity. X-rays including AP, outlet and axillary lateral views of the left shoulder obtained in the office show severe glenohumeral joint osteoarthrosis with subchondral sclerosis and cystic changes involving the greater tuberosity. The humeral head to acromial distance appears to be diminished. IMPRESSION: Left rotator cuff arthropathy/severe glenohumeral joint osteoarthrosis. RECOMMENDATIONS: I talked to the patient at length regarding her condition along with treatment options. At this point, she is quite limited because of pain related to her osteoarthrosis and weakness related to her rotator cuff arthropathy despite conservative measures. After thorough discussion, she opts to proceed with surgery. We will plan to proceed with reverse left total shoulder arthroplasty. We will likely forego interscalene block prior to surgery. The risks and benefits were discussed at length in layman's terms. MMODL / IJN: [id number] /
[2022-05-20] MEDS ORDERED: DEXAMETHASONE SOD PHOSPHATE 4 MG/ML 1 ML VIAL IV ONE (06:09)
[2022-05-20] MEDS ORDERED: ONDANSETRON 4 MG/2 ML VIAL IVP ONE (06:09)
[2022-05-20] MEDS ORDERED: LIDOCAINE 1% (10MG/ML) FOR IV START INTRADERMA PRN (06:09)
[2022-05-20] MEDS ORDERED: MIDAZOLAM 2 MG/2 ML VIAL IV PRN (06:09)
[2022-05-20] MEDS: LACTATED RINGERS 1,000 ML IV SCH (06:45)
[2022-05-20] MEDS ORDERED: ePHEDrine 50 MG/ML 1 ML VIAL ONE (07:49)
[2022-05-20] MEDS ORDERED: NEOSTIGMINE 1 MG/ML 10 ML VIAL ONE (07:49)
[2022-05-20] MEDS ORDERED: TRANEXAMIC ACID IN NACL,ISO-OS 1,000 MG/100 ML BAG ONE (07:49)
[2022-05-20] MEDS ORDERED: VECURONIUM 10 MG VIAL IV ONE (07:49)
[2022-05-20] MEDS ORDERED: SUCCINYLCHOLINE CHLORIDE 100 MG/5 ML SYR IV ONE (07:49)
[2022-05-20] MEDS ORDERED: LIDOCAINE 2% INJ 20 MG/ML (2 ML VIAL) ONE (07:49)
[2022-05-20] MEDS ORDERED: GLYCOPYRROLATE 0.2 MG/ML 2 ML VIAL ONE (07:49)
[2022-05-20] MEDS ORDERED: PROPOFOL 10 MG/ML 20 ML VIAL IV ONE ×2 (07:49)
[2022-05-20] MEDS ORDERED: HYDROmorphone (PF) 1 MG/ML ONE (07:49)
[2022-05-20] MEDS ORDERED: ceFAZolin 1,000 MG in SODIUM CHLORIDE 0.9% 1,000 ML IRRIGATION ONE (08:25)
[2022-05-20] MEDS ORDERED: SENNOSIDES-DOCUSATE SODIUM 1 EACH TAB PO PRN (09:41)
--- NOTE | 2022-05-20 10:04 | P.OP ---
Date of Procedure: 05/20/22 Preoperative Diagnosis: Left severe glenohumeral joint osteoarthrosis/rotator cuff arthropathy Postoperative Diagnosis: Same Procedure(s) Performed: Left reverse total shoulder arthroplasty Implants: Depuy Delta Xtend size 8 humeral stem, size 1 epiphysis, +12 articular surface, 38 mm glenosphere with standard base plate. Anesthesia: PETER Surgeon: Conor Resendiz [employer]cre[employer] Mechanical #1: Micah Virgen Estimated Blood Loss (ml): 150 Pathology: other (Humeral head) Condition: stable Disposition: PACU Indications for Procedure: The patient's an 82-year-old female presents with progressive left shoulder pain and weakness despite conservative measures. Clinically she was noted have significant glenohumeral osteoarthrosis along with rotator cuff deficiency. A discussion the risks and benefits of operative intervention versus continued c onservative measures was made with patient. She opted to proceed with surgery. Operative risks to include infection, neurovascular injury, development of blood clots, possible component loosening, instability, possible need for subsequent procedures was discussed. Informed consent was obtained. Operative Findings: As below Description of Procedure: The patient was brought to the operating room, and after induction of general anesthesia was placed in a beachchair position. The bony prominences were appropriately padded. I examined the left shoulder. There was moderate lack of passive forward elevation and external rotation. The left upper extremity was prepped and draped in normal fashion. The bony outlines the coracoid pro cess, distal clavicle, and acromion were outlined with a skin marker. A pulse centimeter deltopectoral incision was made lateral to the coracoid process. Skin was incised sharply. Subcutaneous tissues were divided bluntly. Electrocautery was used for hemostasis. The cephalic vein was identified and gently retracted laterally with the deltoid. The deltopectoral was bluntly developed. Subdeltoid adhesions were then released. The self-retaining retractor was placed. The conjoined tendon was retracted medially and the deltoid laterally. The biceps was identified. Its sheath was opened. A biceps tenotomy was performed along the remaining tendon did retract distally. Pseudocapsule was excised. The subscapularis was peeled off the lesser tuberosity and tagged. The head was then exposed. The shoulder was dislocated. A starting hole was made in line with the humeral shaft. The canal was reamed by hand up to size 8. There was good distal chatter. The cutting guide was then placed. I planned on 20 of retroversion. The humeral head cut was then made. The bone was removed in one fragment. Residual inferomedial osteophytes were removed flush with the sun'aq cortical bone. Attention was then paid towards preparing the glenoid. An anterior and posterior retractors placed. The labrum was released from the 6-12 o'clock position. Remaining biceps was removed as well. A guidepin was placed in the inferior aspect of the glenoid with the guide slightly tilting inferior. The reamer was used down to a bleeding bony surface. The central peg hole was drilled. The standard baseplate was inserted with good purchase. Inferior, superior, and posterior locking screws the appropriate length were placed. Good purchase was obtained. The 38 mm glenosphere was inserted over a guidewire. This was fully seated. Care was taken to avoid any soft tissue interposition. Attention was then paid towards preparing the proximal humerus. The appropriate broach was placed and 20 of retroversion and was fully seated. An eccentric size 1 epiphyseal reamer was utilized. A size 8 stem with a size 1 epiphysis was placed and 20 of retroversion. Trial reduction was obtained with a 38 mm + 12 articular surface. The shoulder was taken through range of motion. It was felt to be stable in flexion and extension with internal and external rotation. I felt there was adequate amish of soft tissue tension judging off the conjoined tendon. The shoulder was gently dislocated. The trial components were then removed. The final size 8 press-fit stem along with a size 1 epiphysis was fully seated. There was good rotational stability. The 38 mm +12 articular surface was impacted. The shoulder again was gently reduced and taken through range of motion. Again it was felt to be stable in all planes. Pulsatile lavage was utilized. The subscapularis was a attached to the lesser tuberosity with #2 Ethibond suture. The deltopectoral interval was closed with interrupted 2-0 Vicryl sutures. The skin was reapproximated with 3-0 subcuticular Prolene suture. Steri-Strips were applied. A sterile dressing was applied. A sling was placed. The patient was awoken from general anesthesia and transferred to recovery room in good condition. Blood loss was estimated at 150 mL. No complications were incurred. Sponge and needle counts were correct at the end the case. Micah ESCOBAR assisted during the major components of the case to include exposure, glenoid and humeral preparation, implantation, and closure.
[2022-05-20] MEDS: HYDROmorphone 0.5 MG/0.5 ML SYRINGE IVP PRN ×6 (10:43→21:49)
--- NOTE | 2022-05-20 10:44 | XR ---
EXAMINATION TYPE: XR shoulder limited LT DATE OF EXAM: 05/20/2022 COMPARISON: NONE HISTORY: 82-year-old female postop left shoulder TECHNIQUE: Single AP view FINDINGS: Image shows placement of reverse left total shoulder arthroplasty. Mild degenerative change AC joint. Soft tissue and intra-articular air related to recent operation. Overall alignment appears appropria te for a reverse arthroplasty. Some mild patchy left basilar opacity likely atelectasis. IMPRESSION: Uncomplicated postoperative appearance reversed left total shoulder arthroplasty.
[2022-05-20] MEDS ORDERED: LACTATED RINGERS 1,000 ML IV ONE (12:21)
[2022-05-20] MEDS ORDERED: hydrOXYzine pamoate 25 MG CAP PO PRN (13:05)
[2022-05-20] MEDS ORDERED: HYDROmorphone 0.5 MG/0.5 ML SYRINGE IVP ONE (13:54)
[2022-05-20] MEDS: HYDROcodone/APAP 5-325MG 1 EACH TAB PO PRN (19:33)
[2022-05-20] MEDS ORDERED: ATORVASTATIN 20 MG TAB PO SCH (21:00)
[2022-05-20] MEDS: METOPROLOL TARTRATE 12.5 MG TAB PO SCH (21:13)
[2022-05-21] MEDS: HYDROcodone/APAP 5-325MG 1 EACH TAB PO PRN ×3 (01:43→13:44)
[2022-05-21] MEDS: HYDROmorphone 0.5 MG/0.5 ML SYRINGE IVP PRN (05:53)
[2022-05-21 06:53] LABS: Basophils % (A) 0 %; Eosinophils % (A) 0 %; HCT 30.2 % (34.0-46.0); Lymphocytes # (A) 0.9 k/uL (1.0-4.8); Lymphocytes % (A) 14 %; MCH 32.2 pg (25.0-35.0); MCHC 32.8 g/dL (31.0-37.0); Monocytes # (A) 0.4 k/uL (0-1.0); Monocytes % (A) 7 %; Neutrophils % (A) 78 %; Platelet Count 255 k/uL (150-450); RBC 3.08 m/uL (3.80-5.40); RDW 14.4 % (11.5-15.5); WBC 6.4 k/uL (3.8-10.6)
[2022-05-21 06:55] LABS: HGB 9.9 gm/dL (11.4-16.0)
[2022-05-21] MEDS: LACTATED RINGERS 1,000 ML IV SCH (08:08)
[2022-05-21] MEDS: METOPROLOL TARTRATE 12.5 MG TAB PO SCH (08:15)
[2022-05-21] MEDS ORDERED: ASPIRIN 325 MG TAB PO SCH (09:00)
[2022-05-21] MEDS ORDERED: FLUoxetine HCL 20 MG CAP PO SCH (09:00)
--- NOTE | 2022-05-21 10:02 | P.DS ---
Providers Date of admission: 05/20/2022 Expected date of discharge: 05/21/22 Attending physician: Conor Resendiz Consults: 05/20/22 09:46 Consult Physician Routine Consulting Provider: Marti Berger Consult Reason/Comments: Medical Management s/p reverse left total shoulder arthroplasty Do you want consulting provider notified?: Yes Primary care physician: Noelle Soto Hospital Course: Date of admission: 05/20/2022 Date of discharge: 05/21/2022 Admission diagnosis: Status post reverse left total shoulder arthroplasty Discharge diagnosis: Same Attending physician: Dr. Resendiz Surgical procedures: Reverse left total shoulder arthroplasty Brief history: Patient is a 82-year-old female with a history of progressive primary left shoulder osteoarthritis with rotator cuff arthropathy. At this point patient has failed conservative treatment measures and has opted to proceed with a elective reverse left total shoulder arthroplasty. Hospital course: Details of patient's surgery can be found in operative report. Patient tolerated the procedure well and was subsequently transported to orthopedic floor. Patient's orthopeidc and medical care was provided daily. Patient had daily laboratory tests performed for evaluation of overall blood counts. Patient had daily physical therapy to include strengthening range of motion as well as education with walker ambulation. Patient was treated with aspirin for their postoperative DVT prophylaxis during their inpatient stay. Patient was noted to have a relatively uneventful postoperative course. Patient reported satisfactory pain control with oral pain medications by postoperative day 0. Patient showed satisfactory progress with physical therapy. Patient moved steadily through the program and had no difficulty meeting the goals by postoperative day 1. Given patient's otherwise satisfactory course and having met physical therapy goals, plan is to discharge patient home on postoperative day 1. Discharge condition/disposition: Patient will be discharged home in stable condition. Discharge medications: Instructions are given on resumption of patient's normal daily medications per primary care recommendation, in addition patient will be prescribed [place] 5 mg/325 mg, Colace 100 mg, aspirin 325 mg. Discharge instructions: 1. Utilize arm sling daily 2. Ice the shoulder for relief 3. Keep incision covered and dry while showering 4. Limited activities for left upper extremity, basic hand and elbow exercises are okay 5. Aspirin 325 mg daily for 2 weeks for DVT prophylaxis 6. Pain medication may cause constipation, utilize stool softeners 7. Recommend follow-up with primary care doctor in the next 1014 days 8. [facility] 2 weeks for first postop visit Procedures: Reverse left total shoulder arthroplasty Patient Condition at Discharge: Good Plan - Discharge Summary Discharge Rx Participant: Yes New Discharge Prescriptions: New Docusate [Colace] 100 mg PO DAILY #15 capsule Aspirin 325 mg PO DAILY #14 tab HYDROcodone/APAP 5-325MG [[place] 5-325] 1 tab PO Q6HR PRN #28 tab PRN Reason: Pain No Action Omeprazole [PriLOSEC] 20 mg PO DAILY Cholecalciferol [Vitamin D3 (25 Mcg = 1000 Iu)] 2,000 unit PO DAILY Multivitamins, Thera [Multivitamin (formulary)] 1 tab PO DAILY Aspirin [Adult Low Dose Aspirin EC] 81 mg PO DAILY Atorvastatin [Lipitor] 20 mg PO HS Turmeric Root Extract [Turmeric] 500 mg PO DAILY Metoprolol Tartrate 12.5 mg PO BID FLUoxetine HCL [PROzac] 20 mg PO DAILY Discharge Medication List Cholecalciferol [Vitamin D3 (25 Mcg = 1000 Iu)] 2,000 unit PO DAILY 10/14/16 [History] Multivitamins, Thera [Multivitamin (formulary)] 1 tab PO DAILY 10/14/16 [History] Omeprazole [PriLOSEC] 20 mg PO DAILY 10/14/16 [History] Aspirin [Adult Low Dose Aspirin EC] 81 mg PO DAILY 04/11/22 [History] Atorvastatin [Lipitor] 20 mg PO HS 04/11/22 [History] Turmeric Root Extract [Turmeric] 500 mg PO DAILY 04/11/22 [History] FLUoxetine HCL [PROzac] 20 mg PO DAILY 05/16/22 [History] Metoprolol Tartrate 12.5 mg PO BID 05/16/22 [History] Aspirin 325 mg PO DAILY #14 tab 05/21/22 [Rx] Docusate [Colace] 100 mg PO DAILY #15 capsule 05/21/22 [Rx] HYDROcodone/APAP 5-325MG [[place] 5-325] 1 tab PO Q6HR PRN #28 tab 05/21/22 [Rx] Follow up Appointment(s)/Referral(s): Micah Virgen, KEENAN [PHYSICIAN COLOR BLENDER] - 2 Weeks Patient Instructions/Handouts: Shoulder Arthroplasty (DC) Activity/Diet/Wound Care/Special Instructions: Orthopedic discharge instructions: 1. Keep incision covered and dry while showering 2. Utilize arm sling 3. Ice the shoulder often for relief 4. Pain medication as needed, okay to use [id number] Tylenol as needed. Do not exceed 4000 mg of Tylenol in 24 hours 5. Aspirin 325 mg daily for 2 weeks for DVT prophylaxis 6. Plan for follow-up at [facility] in 2 weeks, contact office at any questions Discharge Disposition: HOME SELF-CARE
--- NOTE | 2022-05-21 11:36 | P.PN ---
Subjective Progress Note Date: 05/21/22 Principal diagnosis: Left severe glenohumeral joint osteoarthrosis/rotator cuff arthropathy Patient was seen at bedside this morning resting comfortably lying semirecumbent position with sling to left upper extremity. Patient says currently she rates her pain as 6/10. She says that the [place] does help control her pain. Patient says most of the pain is localized to the left shoulder. Patient denies any radiation of pain. Patient says she is looking forward to going home. Patient denies chest pain, fever, shortness of breath, nausea, vomiting, change in vision, loss of bowel/bladder control. Objective - Vital Signs Vital signs: Vital Signs Temp 98.1 F 05/21/22 08:00 Pulse 67 05/21/22 08:00 Resp 16 05/21/22 08:00 BP 95/58 05/21/22 08:00 Pulse Ox 92 L 05/21/22 08:00 FiO2 Intake & Output 05/20/22 05/21/22 05/21/22 18:59 06:59 18:59 Intake Total 751 590 Output Total 150 300 Balance 601 290 Weight 58.2 kg Intake: IV 701 Intake, IV Titration 50 Amount ceFAZolin 2 gm In Sodium 50 Chloride 0.9% 50 ml @ 100 mls/hr IVPB Q[facility] Rx# :[id number] Oral 590 Output: Urine 300 Straight 300 Estimated Blood Loss 150 - Exam Left shoulder: Incision is clean, dry, and intact. The surgical dressing is in good condition. There is minimal soft tissue swelling and ecchymosis surrounding the incision. Calf is soft, no tenderness with palpation. Plantar flexion, dorsiflexion, EHL, FHL are intact. Radial pulses intact, 2+ bilaterally. Patient does have full range of motion in left elbow in flexion/extension and left wrist flex ion/extension. Purler strength 5/5 bilaterally. Capillary refill under 3 seconds in digits upper extremities. Sensory exam to light touch throughout the extremity is intact, dorsal pedis pulses 2+. - Labs CBC & Chem 7: 05/21/22 05:30 Labs: Abnormal Lab Results - Last 24 Hours (Table) 05/21/22 Range/Units 05:30 RBC 3.08 L (3.80-5.40) m/uL Hgb 9.9 L D (11.4-16.0) gm/dL Hct 30.2 L (34.0-46.0) % Lymphocytes # 0.9 L (1.0-4.8) k/uL Assessment and Plan Assessment: 1. Left severe glenohumeral joint osteoarthrosis/rotator cuff arthropathy - Post op day #1 s/p Left reverse total shoulder arthroplasty Plan: 1. Left severe glenohumeral joint osteoarthrosis/rotator cuff arthropathy - surgery performed yesterday, 05/20/2022 - reverse total shoulder arthroplasty. Patient stable at bedisde this morning with sling in place on LUE. Patient doing well. Discharge home today. 2. Appreciate medical management 3. Pain management - [place] 4. DVT prophylaxis - aspirin 325 mg daily 5. GI prophylaxis - senna; Colace 6. PT/OT - nonweightbearing left upper extremity. Maintain left upper extremity in sling. May perform pendular exercises 7. Discharge planning - home today Time with Patient: Less than 30
[2022-05-21 14:59] VITALS: BP 101/64; PULSE 70; RESP 20; TEMP 98.2
== END 2022-05-21 16:42 | disposition home or self-care (01) ==
LOC: OR 05:58 → 4SSUR 10:03 → OR 05-21 16:49
PROVIDERS: ATTEND Orthopaedic Surgery
DX: M19.012 Primary osteoarthritis, left shoulder (principal); I10 Essential (primary) hypertension; E78.00 Pure hypercholesterolemia, unspecified; E78.5 Hyperlipidemia, unspecified; K21.9 Gastro-esophageal reflux disease without esophagitis; G40.909 Epilepsy, unspecified, not intractable, without status epilepticus; Z79.82 Long term (current) use of aspirin; Z79.899 Other long term (current) drug therapy; Z88.0 Allergy status to penicillin; Z90.49 Acquired absence of other specified parts of digestive tract; Z87.891 Personal history of nicotine dependence; Z96.611 Presence of right artificial shoulder joint; Z80.9 Family history of malignant neoplasm, unspecified; Z88.8 Allergy status to other drugs, medicaments and biological substances
CPT/HCPCS: 64415; 76942; 85025; 88300; 73020; 23472; C1776; J1100; J0690 ×2; J2405; J1170 ×2

== ENCOUNTER 2023-02-12 11:08 | Day surgery (SDC) | payer MEDICARE ==
[2023-02-10 13:57] VITALS: BMI 25.2
[2023-02-12] MEDS ORDERED: LACTATED RINGERS 1,000 ML IV SCH (11:29)
[2023-02-12] MEDS ORDERED: LIDOCAINE 1% (10MG/ML) FOR IV START INTRADERMA PRN (11:29)
[2023-02-12 11:55] VITALS: TEMP 97.5
[2023-02-12] MEDS ORDERED: MIDAZOLAM 2 MG/2 ML VIAL ONE (12:45)
[2023-02-12] MEDS ORDERED: IOPAMIDOL M200 10 ML VIAL ONE (12:45)
[2023-02-12] MEDS ORDERED: methylPREDNISolone ACETATE 40 MG/ML 1 ML VIAL ONE (12:45)
[2023-02-12] MEDS ORDERED: LACTATED RINGERS 1,000 ML IV ONE (12:55)
--- NOTE | 2023-02-12 12:55 | P.PCN ---
Date of Procedure: 02/12/23 Procedure(s) Performed: PREOPERATIVE DIAGNOSIS: 1- Lumbar Degenerative Disc Diseases 2-Lumbar spondylosis with Facet arthropathy without myelopathy. POSTOPERATIVE DIAGNOSIS: Same as preop diagnosis. PROCEDURE 1. Lumbar epidural steroid injection under fluoroscopic guidance at the L5-S1 level. (Fluoroscopy imaging was available in radiology department) 2. Lumbar epidurogram. ANESTHESIA: moderate sedation with intravenous Versed 1 mg . Sedation start time : 1248 Sedation end time : 1252 EBL: Minimal PROCEDURE INDICATION: The patient with low back pain and radiculitis symptoms unresponsive to conservative treatment. Fluoroscopy was used to optimize visualization of the needle placement and to maximize safety. PROCEDURE DESCRIPTION / TECHNIQUE: The patient was seen and identified in the preoperative area. Risks, benefits, complications including but not limited to infections ,bleeding ,allergic reaction to the medications ,nerve damage and not complete pain releife , and alternatives were discussed with the patient. The patient agreed to proceed with the procedure and signed the consent. IV was started, and vital signs were stable. Patient was taken to the OR and time out was completed. The patient was placed in the prone position on procedure table and a pillow was placed under the abdomen to reduce lumbar lordosis. The lumbosacral area was prepped and draped in the usual sterile fashion.ere closely monitored during the procedure. Conscious sedation was used during the procedure to decrease patients anxiety. Vital signs was monitered during the entire procedure. Using anterior-posterior fluoroscopy, the L5-S1 interlaminar space was identified and the skin over this site was marked and then infiltrated with 1% lidocaine subcutaneously. Subsequently, a 20-gauge Tuohy epidural needle was inserted and advanced toward the epidural space using the ``Loss of resistance technique and guided by AP and lateral fluoroscopy. The correct needle position in the epidural space was verified with the injection of 2 mL of the water soluble contrast dye Isovue 200 contrast and observing an excellent epidurogram with the epidural spread of the dye, after negative aspiration for blood and CSF and in the absence of paresthesias. Again after negative aspiration, a 6 ml mixture containing 40 mg of Depo-medrol ( Preservetive Free ), and 2 ml of preservative free Normal Saline, and 2 ml of preservative free lidocaine 1% solution was injected and a washout of epidurogram was seen. Needle was withdrawn intact, skin was cleansed, and bandages were applied. COMPLICATIONS: None DISPOSITION / PLANS: The patient was placed in a supine position and transferred to the recovery area in a stable condition for observation. There was no evidence of lower extremity motor or sensory deficit after the procedure. Patient was discharged from the recovery room after meeting discharge criteria. Home discharge instructions were given to the patient by the staff. The patient was reexamined prior to discharge. The patient will schedule a follow up in the clinic in 2-4 weeks.
[2023-02-12 13:12] VITALS: BP 122/64; PULSE 56; RESP 16
--- NOTE | 2023-02-12 15:42 | FL ---
EXAMINATION TYPE: FL guided pain mgmt statistic DATE OF EXAM: 02/12/2023 FLUOROSCOPY Fluoroscopy time of 2 seconds was used during lumbar epidural steroid injection. 1 image/s document/ s the procedure. DAP [id number].
== END 2023-02-12 13:30 | disposition home or self-care (01) ==
LOC: ORPAIN 11:08
PROVIDERS: ATTEND Specialist
DX: M51.16 Intervertebral disc disorders with radiculopathy, lumbar region (principal); M47.26 Other spondylosis with radiculopathy, lumbar region; Z88.0 Allergy status to penicillin; Z91.041 Radiographic dye allergy status
CPT/HCPCS: 62323; J2250; J1030; Q9966

== ENCOUNTER → 2023-02-23 | Outpatient (CLI) | payer MEDICARE ==
[2023-02-23 10:48] VITALS: BP 112/69; PULSE 65; RESP 18; TEMP 97.7
--- NOTE | 2023-02-23 10:51 | P.PN ---
Subjective Progress Note Date: 02/23/23 82 yr old femal,with history of sever and chronic LBP secondary to DDD, spondylosis and facet arthropathy without myelopathy recently we have done lumbar epidural steroid injection helped her low back pain, she currently complaining of severe pain in the buttock area, constant, increased with any activity and increase as she staying in the same position for long time. Pain is provoked by over activity. Pain is alleviated by PT integrated w massage x 4 wks in Oct 2022 but with minimal relief, medications (Neurontin, Aleve OTC), heat, reclining and rest. PMH: GERD, Hyperlipidemia, HTN, OA PSH: L Shoulder Total Arthroplasty (2015), R Shoulder Total Arthroplasty (2021), L Interscalene injection (2021), R Breast Biopsy, BL Cataract Resection, C section, Appendectomy SH: Former tobacco user, No ETOH abuse, No illicit drug use FH: Fa- Lung CA All: See list Meds: See list REVIEW OF ORGAN SYSTEMS: CONSTITUTIONAL: No fevers or chills. No recent weight loss. NEUROLOGICAL: + numbness and tingling along the distal extremities. No seizure disorders or headaches. MUSCULOSKELETAL: + pain PSYCHIATRIC: Denies current depression or suicidal thoughts. Physical Examinations : -Constitutiona : Cooperative , not in acute distress . -HEENT : nech : supple , no Lymphadenopathy , normal thyroid size . : eyes : no ptosis , no icterus, no photophobia . - neurologic : Cranial nerve II to XII intact , no focal neurological deffecit . -psychatric : alert , oriented X 3 , appropriate affect , intact judgment and insight . -Lymphatic : no Lymphadenopathy . - musculoskeltal : Lumber spine moter stegnth lower extremities ,thigh and legs 5/5 Right side , 5/5 Left side deep tendon reflexes : normal Knee Jerk , normal ankle Jerk lumber facet Loading Test =positive Right , positive Left Range of motion of the lumbar spine Flexion 30 degrees, extension 10 degrees strait leg raising test = positive at 30 degree Fabere test= positive Right , and positive LT . Sever tenderness over the Sacroiliac joint on the Right , and Left sides Gaenslen test= positive right ,and positive left . Seated flexion test= positive right ,and positive Left . Distraction test= positive bilaterally Sacroiliac compression test= positive bilaterally Imaging: MRI without contrast of the lumbar spine from 1/27/23 reviewed Assessment/ Plan : 1-Lumbar anterolisthesis,2- lumbar DDD, 3-lumbar spondylosis with lumbar facet arthropathy4-bilateral sacroiliitis Recommendation repeat HANDY L5-S1. In the future if she continues to have pain , she could benefit from sacroiliac joint steroid injection PQRS Narrative: Smoking Status Former smoker Home Medications: Ambulatory Orders Cholecalciferol [Vitamin D3 (25 Mcg = 1000 Iu)] 2,000 unit PO DAILY 10/14/16 Multivitamins, Thera [Multivitamin (formulary)] 1 tab PO DAILY 10/14/16 Omeprazole [PriLOSEC] 20 mg PO DAILY 10/14/16 Aspirin [Adult Low Dose Aspirin EC] 81 mg PO DAILY 04/11/22 Atorvastatin [Lipitor] 20 mg PO HS 04/11/22 Turmeric Root Extract [Turmeric] 500 mg PO DAILY 04/11/22 Metoprolol Tartrate 12.5 mg PO BID 05/16/22 Docusate [Colace] 100 mg PO DAILY #15 capsule 05/21/22 lisinopriL [Zestril] 10 mg PO DAILY 01/21/23 Controlled Substance Measures - Controlled Substance Measures Is patient prescribed a controlled substance at discharge?: No
== END ==
LOC: PNWHC3 10:07
PROVIDERS: ATTEND Specialist
DX: M43.16 Spondylolisthesis, lumbar region (principal); M46.1 Sacroiliitis, not elsewhere classified; M47.816 Spondylosis without myelopathy or radiculopathy, lumbar region; M51.36 Other intervertebral disc degeneration, lumbar region; Z79.82 Long term (current) use of aspirin; Z80.1 Family history of malignant neoplasm of trachea, bronchus and lung; E78.5 Hyperlipidemia, unspecified; I10 Essential (primary) hypertension; K21.9 Gastro-esophageal reflux disease without esophagitis; Z87.891 Personal history of nicotine dependence; Z90.49 Acquired absence of other specified parts of digestive tract; M19.90 Unspecified osteoarthritis, unspecified site; Z88.0 Allergy status to penicillin; Z91.048 Other nonmedicinal substance allergy status
CPT/HCPCS: 99211

== ENCOUNTER 2023-03-03 12:06 | Day surgery (SDC) | payer MEDICARE ==
[~2023-03-03 12:06] MED LIST changes: -ACETAMINOPHEN TAB 500 MG TAB PO PRN; +LACTATED RINGERS 1,000 ML IV SCH; -MELOXICAM 7.5 MG TAB PO PRN; -TRANEXAMIC ACID IN NACL,ISO-OS 1,000 MG in SALINE 1 100ML.BAG IVPB PRN
[2023-03-03 12:24] VITALS: TEMP 97.9
[2023-03-03] MEDS ORDERED: methylPREDNISolone ACETATE 40 MG/ML 1 ML VIAL ONE (12:29)
[2023-03-03] MEDS ORDERED: IOPAMIDOL M200 10 ML VIAL ONE (12:29)
[2023-03-03] MEDS ORDERED: MIDAZOLAM 2 MG/2 ML VIAL ONE (12:29)
[2023-03-03] MEDS ORDERED: fentaNYL (PF) 50 MCG/ML 2 ML AMP ONE (12:29)
--- NOTE | 2023-03-03 12:39 | P.PCN ---
Date of Procedure: 03/03/23 Procedure(s) Performed: Lumbar epidural steroid injection Description of Procedure: PREOPERATIVE DIAGNOSIS: lumbar radiculopathy POSTOPERATIVE DIAGNOSIS: Lumbar radiculopathy PROCEDURE 1. Lumbar epidural steroid injection under fluoroscopic guidance at the L5-S1 level. 2. Lumbar epidurogram. Imaging: Fluoroscopy was used, images where saved to the medical record ANESTHESIA: Medication Administered by: Nurse Sedation Type: Moderate sedation Sedation Supervision start time: 1233 Sedation Supervision end time: 123 EBL: Minimal PROCEDURE INDICATION: The patient with low back pain and radiculitis symptoms unresponsive to conservative treatment. Fluoroscopy was used to optimize visualization of the needle placement and to maximize safety. PROCEDURE DESCRIPTION / TECHNIQUE: The patient was seen and identified in the preoperative area. Risks, benefits, complications including but not limited to infections, bleeding, allergic reaction to medications, nerve damage and incomplete pain relief, as well as alternatives to the procedure were discussed with the patient. The patient agreed to proceed with the procedure and signed the consent. IV was started if indicated above, and vital signs were stable. Patient was taken to the OR and time out was completed. The patient was placed in the prone position on procedure table and a pillow was placed under the abdomen to reduce lumbar lordosis. The lumbosacral area was prepped and draped in the usual sterile fashion. Vitals were closely monitored during the proce dure. Using anterior-posterior fluoroscopy, the L5-S1 interlaminar space was identified and the skin over this site was marked and then infiltrated with 1% lidocaine subcutaneously. Subsequently, a 20-gauge Tuohy epidural needle was inserted and advanced toward the epidural space using the Loss of resistance technique and guided by AP and lateral fluoroscopy. The correct needle position in the epidural space was verified with the injection of 1 mL of Omnipaque 180 contrast to observe an acceptable epidurogram, after negative aspiration for blood and CSF and in the absence of paresthesias. Again after negative aspiration, a 3 ml mixture containing 40mg of depomedrol and 2 ml of preservative free Normal Saline was injected and a washout of epidurogram was seen. Needle was withdrawn intact, skin was cleansed, and bandages were applied. COMPLICATIONS: None DISPOSITION / PLANS: The patient was placed in a supine position and transferred to the recovery area in a stable condition for observation. There was no evidence of lower extremity motor or sensory deficit after the procedure. Patient was discharged from the recovery room after meeting discharge criteria. Home discharge instructions were given to the patient by the staff. The patient was reexamined prior to discharge. The patient will follow up as directed.
[2023-03-03] MEDS ORDERED: IV FLUID CONTINUATION 750 ML IV ONE (12:45)
--- NOTE | 2023-03-03 12:50 | FL ---
Intraoperative/procedural fluoroscopic services were provided. Total fluoroscopy time is 4 seconds wi th a total of 1 submitted images to PACS. Please see the operative/procedural note for further detail s. DAP: [phone]
[2023-03-03 12:52] VITALS: RESP 20
[2023-03-03 13:02] VITALS: BP 111/69; PULSE 63
== END 2023-03-03 13:15 | disposition home or self-care (01) ==
LOC: ORPAIN 12:06
PROVIDERS: ATTEND Hospitalist
DX: M54.16 Radiculopathy, lumbar region (principal); Z88.0 Allergy status to penicillin
CPT/HCPCS: 62323; J2250; J1030; J3010; Q9966

== ENCOUNTER → 2023-04-01 | Outpatient (CLI) | payer MEDICARE ==
[2023-04-01 11:50] VITALS: BP 129/77; PULSE 63; RESP 18; TEMP 97.7
--- NOTE | 2023-04-01 14:31 | P.PAINPG ---
PQRS Measure Charge Sheet Comment: A 82 yr old female w at side with a history of severe and chronic LBP secondary to lumbar DDD and spondylosis with facet arthropathy without myelopathy presents today for evaluation s/p HANDY L5-S1. Pt states she experienced 50 % pain relief x 2 wks s/p procedure. Pain level is provoked at 10/10 in intensity, constant, localized in the L & R lumbar spine, sharp in character w shooting towards the hips and BLEs. Pain is provoked by standing/ walking. Pain is alleviated with PT x 4 wks in Oct 2022, daily home stretching regimen, heat, massage integrated w PT, medications, bending, repositioning and rest. Interventional pain procedures completed include HANDY L5-S1 Patient is currently on Aleve Patient denies any side effects of the medication(s), denies excessive drowsiness or sleepiness, denies suicidal ideation and reports that the current pain medication is helping to control the pain and improve activities of daily living. Patient denies any motor or sensory deficits. Patient denies any fever or night sweats, denies any change in the bowel movements or urination. Physical Examination: -Constitutional: Cooperative. Not in acute distress . - Neurologic: Cranial nerve II to XII intact. No focal neurological deficits. - Psychatric: Alert & oriented x 3. Matching mood & appropriate affect. Judgment and insight intact. - Musculoskeletal: Cervical spine: Muscle bulk/ tone/ strength in the bilateral upper extremities normal Vertebral body tenderness to palpation over Spurling test positive Distraction test positive Facet loading test positive TTP Thoracic spine Muscle bulk / tone/ strength in the bilateral paraspinal muscles normal Vertebral body tender to palpation over Facet loading test positive TTP Lumbar spine: Motor bulk/ tone/ strength lower extremities , thigh and legs : 5/5 Deep tendon reflexes : Normal Knee Jerk. Normal Ankle Jerk . Vertebral body tenderness to palpation over Lumbar Facet Loading Test positive over L L4-L5, L5-S1 facets Straight Leg Raise: positive at 30 degrees right side/ left side Gaenslen's Test positive Sacral spine : Severe tenderness over the Sacroiliac joint: right side / left side Range of motion: Flexion of the lumbar spine <60 degrees Range of motion: Extension of the lumbar spine <20 degrees Gaenslen's Test positive right side / left side Sen test: positive right side / left side Thigh Thrust Test positive right side / left side Sacral Thrust Test positive right side / left side Assessment and plan: Chronic LBP secondary to lumbar DDD, spondylosis with facet arthropathy without myelopathy Recommendation of L facet block of the medial branches L4-L5, L5-S1 #1. May need a series fo injections, up until RFA, for optimal pain relief. Risks, benefits of procedure discussed and pt verbalized understanding. Admits to anticoagulant use or medical history of diabetes. Protocol for discontinuation/ continuation of medications benny procedure discussed. All questions answered. I have spent less than 30 minutes on patient care today. Dr Martinez was available by phone for the evaluation of this patient. The time was used to review the medical records including relevant urine studies and Prescription history (MAPs), review of the available imaging, evaluation and examination of the patient, coordination of care with the medical staff and if applicable referring physicians, as well as creation of the medical record PQRS Narrative: Smoking Status Former smoker Hx Alcohol Use (MH) Yes: SOCIAL Home Medications: Ambulatory Orders Cholecalciferol [Vitamin D3 (25 Mcg = 1000 Iu)] 2,000 unit PO DAILY 10/14/16 Multivitamins, Thera [Multivitamin (formulary)] 1 tab PO DAILY 10/14/16 Omeprazole [PriLOSEC] 20 mg PO DAILY 10/14/16 Aspirin [Adult Low Dose Aspirin EC] 81 mg PO DAILY 04/11/22 Atorvastatin [Lipitor] 20 mg PO HS 04/11/22 lisinopriL [Zestril] 10 mg PO DAILY 01/21/23 Alpha Lipoic Acid 600 mg PO DAILY 02/10/23 Metoprolol Succinate (ER) [Toprol Xl] 25 mg PO DAILY 02/10/23 Naproxen Sodium [Aleve] 220 mg PO BID 02/10/23 Controlled Substance Measures - Controlled Substance Measures Is patient prescribed a controlled substance at discharge?: No
== END ==
LOC: PNWHC3 09:39
PROVIDERS: ATTEND Specialist
DX: M51.36 Other intervertebral disc degeneration, lumbar region (principal); M47.816 Spondylosis without myelopathy or radiculopathy, lumbar region; Z87.891 Personal history of nicotine dependence; Z88.0 Allergy status to penicillin
CPT/HCPCS: 99211

== ENCOUNTER 2023-05-01 08:21 | Day surgery (SDC) | payer MEDICARE ==
[~2023-05-01 08:21] MED LIST changes: +LIDOCAINE 1% (10MG/ML) FOR IV START INTRADERMA PRN
[2023-05-01 08:39] VITALS: TEMP 97
[2023-05-01] MEDS ORDERED: methylPREDNISolone ACETATE 40 MG/ML 1 ML VIAL ONE (09:44)
[2023-05-01] MEDS ORDERED: MIDAZOLAM 2 MG/2 ML VIAL ONE (09:44)
[2023-05-01] MEDS ORDERED: ROPIVACAINE 5 MG/ML 20 ML AMPULE ONE (09:44)
[2023-05-01] MEDS ORDERED: fentaNYL (PF) 50 MCG/ML 2 ML AMP ONE (09:44)
[2023-05-01] MEDS ORDERED: IV FLUID CONTINUATION 600 ML IV ONE (10:02)
[2023-05-01 10:22] VITALS: BP 123/72; PULSE 55; RESP 20
--- NOTE | 2023-05-01 10:37 | P.PCN ---
Date of Procedure: 05/01/23 Procedure(s) Performed: PREOPERATIVE DIAGNOSIS : 1- Lumbar spondylosis with Facet Arthropathy without myelopathy . 2- Lumber degenerative disc disease POSTOPERATIVE DIAGNOSIS: 1- Lumbar spondylosis with Facet Arthropathy without myelopathy . 2- Lumber degenerative disc disease PROCEDURE: Diagnostic left L3 , L4 , and L5 medial branch block under fluoroscopy guidance(fluoroscopy images available in the radiology Department ) ( To target the facet joint between left L4-5 , and L5-S1 ) ANESTHESIA:, Monitored anesthesia care as per anesthesia department. EBL: Minimal COMPLICATION: None PROCEDURE INDICATION: Chronic low back pain secondary to Facet arthropathy unresponsive to conservative treatment. PROCEDURE DESCRIPTION: the patient was seen and identified in the preop holding area , risks and benefits and possible complications of the procedure and alternative were discussed with the patient, and the patient agreed to proceed with the procedure and signed the consent and vital signs monitored duri ng the procedure and fluoroscopy was used to maximize the benefit and accuracy of the needle placement, and sedation was given to decrease patient anxiety, patient was taken to the procedure room and placed in prone position vital signs monitored in the back prepped with chlorhexidine X3 then under strict sterile technique using a right oblique fluoroscopy ,the junction of the transverse process and the superior articulating process of the left L3 , L4 , and L5 vertebra which corresponding to the fluoroscopy image of the eye of the Ashwin dog on the block side for the medial branches and subsequently , after local infiltration of skin and subcu tissuies with Ropivacaine 0.5 % , one mL at each level ,then 22-gauge Quincke-type needles , 3 needle was used , each one of them placed at the junction of the base of the transverse process and the superior articular process at the appropriate level, and the needle was advanced until the periosteum contacted, needle placement confirmed with AP oblique and lateral view and after appropriate needle placement confirmed, and after negative aspiration for heme and CSF and there was no paresthesia 1-1/2 mL of Ropivacaine 0.5% mixed with 20 mg Depo-Medrol , then half mL injected at each level after negative aspiration the needle subsequently removed At the end of the procedure and the needles removed and a bandage applied after the skin was cleaned the cleaning solution patient taken to recovery room in stable condition and monitors in the recovery room for 20-30 minutes and discharged home in stable condition after discharge criteria met and patient will follow up with the pain clinic in 2-4 weeks
--- NOTE | 2023-05-01 10:48 | FL ---
Intraoperative/procedural fluoroscopic services were provided. Total fluoroscopy time is 10.5 seconds with a total of 2 submitted images to PACS. Please see the operative/procedural note for further det ails. DAP: [id number] mGym2
== END 2023-05-01 10:32 | disposition home or self-care (01) ==
LOC: ORPAIN 08:21
PROVIDERS: ATTEND Specialist
DX: M51.36 Other intervertebral disc degeneration, lumbar region (principal); M47.816 Spondylosis without myelopathy or radiculopathy, lumbar region; G89.29 Other chronic pain; I10 Essential (primary) hypertension; E78.5 Hyperlipidemia, unspecified; K21.9 Gastro-esophageal reflux disease without esophagitis; Z88.0 Allergy status to penicillin; Z79.82 Long term (current) use of aspirin
CPT/HCPCS: 64493; 64494; J2250; J1030; J3010; J2795

== ENCOUNTER → 2023-05-21 | Outpatient (CLI) | payer MEDICARE ==
[2023-05-21 08:08] VITALS: BP 121/71; PULSE 65; RESP 16; TEMP 97.8
--- NOTE | 2023-05-21 15:24 | P.PAINPG ---
PQRS Measure Charge Sheet Comment: A 82 yr old female w at side with a history of severe and chronic LBP x 1 yr secondary to lumbar DDD and spondylosis with facet arthropathy without myelopathy presents today for evaluation s/p HANDY L5-S1 #2. Pt states she experienced 30 % pain relief x 2 days s/p procedure. Pain level is provoked at 6/10 in intensity, constant, localized in the L & R lumbar spine, sharp in character w shooting towards the L hips and LLE. Pain is provoked by standing/ walking. Pain is alleviated with PT x 4 wks in Oct 2022, daily home stretching regimen, heat, massage integrated w PT, medications, bending, repositioning and rest. Oswetry Pain Scale at 15. Interventional pain procedures completed include HANDY L5-S1, BL MBB L3-L5 x2 Patient is currently on Aleve Patient denies any side effects of the medication(s), denies excessive drowsiness or sleepiness, denies suicidal ideation and reports that the current pain medication is helping to control the pain and improve activities of daily living. Patient denies any motor or sensory deficits. Patient denies any fever or night sweats, denies any change in the bowel movements or urination. Physical Examination: -Constitutional: Cooperative. Not in acute distress . - Neurologic: Cranial nerve II to XII intact. No focal neurological deficits. - Psychatric: Alert & oriented x 3. Matching mood & appropriate affect. Judgment and insight intact. - Musculoskeletal: Cervical spine: Muscle bulk/ tone/ strength in the bilateral upper extremities normal Vertebral body tenderness to palpation over Spurling test positive Distraction test positive Facet loading test positive TTP Thoracic spine Muscle bulk / tone/ strength in the bilateral paraspinal muscles normal Vertebral body tender to palpation over Facet loading test positive TTP Lumbar spine: Motor bulk/ tone/ strength lower extremities , thigh and legs : 5/5 Deep tendon reflexes : Normal Knee Jerk. Normal Ankle Jerk . Vertebral body tenderness to palpation over Lumbar Facet Loading Test positive over L L4-L5, L5-S1 facets Straight Leg Raise: positive at 30 degrees right side/ left side Gaenslen's Test positive Sacral spine : Severe tenderness over the Sacroiliac joint: right side / left side Range of motion: Flexion of the lumbar spine <60 degrees Range of motion: Extension of the lumbar spine <20 degrees Gaenslen's Test positive right side / left side Sen test: positive right side / left side Thigh Thrust Test positive right side / left side Sacral Thrust Test positive right side / left side Assessment and plan: Chronic LBP secondary to lumbar DDD, spondylosis with facet arthropathy without myelopathy Recommendation of Behavioral Health eval for SCS Trial Dx : G89.4, M54.16. Video viewed. May need a series fo injections, up until RFA, for optimal pain relief. Risks, benefits of procedure discussed and pt verbalized understanding. Admits to anticoagulant use or medical history of diabetes. Protocol for discontinuation/ continuation of medications benny procedure discussed. All questions answered. I have spent less than 30 minutes on patient care today. Dr Martinez was avai lable by phone for the evaluation of this patient. The time was used to review the medical records including relevant urine studies and Prescription history (MAPs), review of the available imaging, evaluation and examination of the patient, coordination of care with the medical staff and if applicable referring physicians, as well as creation of the medical record - Pain Location Left Buttock Non-Pharmacological Interventions: Position/Reposition, Sitting Pharmacological Interventions: PRN Medication, Topical Medication PQRS Narrative: Smoking Status Former smoker Hx Alcohol Use (MH) Yes: SOCIAL Home Medications: Ambulatory Orders Cholecalciferol [Vitamin D3 (25 Mcg = 1000 Iu)] 2,000 unit PO DAILY 10/14/16 Multivitamins, Thera [Multivitamin (formulary)] 1 tab PO DAILY 10/14/16 Omeprazole [PriLOSEC] 20 mg PO DAILY 10/14/16 Aspirin [Adult Low Dose Aspirin EC] 81 mg PO DAILY 04/11/22 Atorvastatin [Lipitor] 20 mg PO HS 04/11/22 lisinopriL [Zestril] 10 mg PO DAILY 01/21/23 Alpha Lipoic Acid 600 mg PO DAILY 02/10/23 Metoprolol Succinate (ER) [Toprol Xl] 25 mg PO DAILY 02/10/23 Naproxen Sodium [Aleve] 220 mg PO BID 02/10/23 Controlled Substance Measures - Controlled Substance Measures Is patient prescribed a controlled substance at discharge?: No
== END ==
LOC: PNWHC3 07:39
PROVIDERS: ATTEND Specialist
DX: M51.37 Other intervertebral disc degeneration, lumbosacral region (principal); M47.817 Spondylosis without myelopathy or radiculopathy, lumbosacral region; G89.29 Other chronic pain; M53.3 Sacrococcygeal disorders, not elsewhere classified; Z88.0 Allergy status to penicillin; Z87.891 Personal history of nicotine dependence; Z91.041 Radiographic dye allergy status; Z79.82 Long term (current) use of aspirin
CPT/HCPCS: 99211

== ENCOUNTER → 2023-06-18 | Outpatient (CLI) | payer MEDICARE ==
[2023-06-18 09:25] VITALS: BP 156/78; PULSE 59; RESP 16; TEMP 97.7
--- NOTE | 2023-06-18 13:27 | P.PAINPG ---
PQRS Measure Charge Sheet Comment: A 83 yr old female w at side with a history of severe and chronic LBP x 1 yr secondary to lumbar DDD and spondylosis with facet arthropathy without myelopathy presents today for evaluation. Pain level is provoked at 8/10 in intensity, constant, localized in the L lower lumbar spine, sharp in character without shooting pain. Pain is provoked by standing/ walking. Pain is alleviated with PT x 4 wks in Oct 2022, daily home stretching regimen, heat, massage integrated w PT, medications, bending, repositioning and rest. Oswetry Pain Scale at 26. Interventional pain procedures completed include HANDY L5-S1, BL MBB L3-L5 x2 Patient is currently on Aleve Patient denies any side effects of the medication(s), denies excessive drowsiness or sleepiness, denies suicidal ideation and reports that the current pain medication is helping to control the pain and improve activities of daily living. Patient denies any motor or sensory deficits. Patient denies any fever or night sweats, denies any change in the bowel movements or urination. Physical Examination: -Constitutional: Cooperative. Not in acute distress . - Neurologic: Cranial nerve II to XII intact. No focal neurological deficits. - Psychatric: Alert & oriented x 3. Matching mood & appropriate affect. Judgment and insight intact. - Musculoskeletal: Cervical spine: Muscle bulk/ tone/ strength in the bilateral upper extremities normal Vertebral body tenderness to palpation over Spurling test positive Distraction test positive Facet loading test positive TTP Thoracic spine Muscle bulk / tone/ strength in the bilateral paraspinal muscles normal Vertebral body tender to palpation over Facet loading test positive TTP Lumbar spine: Motor bulk/ tone/ strength lower extremities , thigh and legs : 5/5 Deep tendon reflexes : Normal Knee Jerk. Normal Ankle Jerk . Vertebral body tenderness to palpation over Lumbar Facet Loading Test positive over L L4-L5, L5-S1 facets Straight Leg Raise: positive at 30 degrees right side/ left side Gaenslen's Test positive Sacral spine : Severe tenderness over the Sacroiliac joint: right side / left side Range of motion: Flexion of the lumbar spine <60 degrees Range of motion: Extension of the lumbar spine <20 degrees Gaenslen's Test positive right side / left side Sen test: positive right side / left side Thigh Thrust Test positive right side / left side Sacral Thrust Test positive right side / left side Assessment and plan: Chronic LBP secondary to lumbar DDD, spondylosis with facet arthropathy without myelopathy Recommendation of SCS Trial Dx : G89.4, M54.16. Behavioral Health clearance received. Risks, benefits of procedure discussed and pt verbalized understanding. Admits to anticoagulant use or medical history of diabetes. Protocol for discontinuation/ continuation of medications benny procedure discussed. All questions answered. I have spent less than 30 minutes on patient care today. Dr Martinez was available by phone for the evaluation of this patient. The time was used to review the medical records including relevant urine studies and Prescription history (MAPs), review of the available imaging, evaluation and examination of the patient, coordination of care with the medical staff and if applicable referring physicians, as well as creation of the medical record PQRS Narrative: Smoking Status Former smoker Hx Alcohol Use (MH) Yes: SOCIAL Home Medications: Ambulatory Orders Cholecalciferol [Vitamin D3 (25 Mcg = 1000 Iu)] 2,000 unit PO DAILY 10/14/16 Multivitamins, Thera [Multivitamin (formulary)] 1 tab PO DAILY 10/14/16 Omeprazole [PriLOSEC] 20 mg PO DAILY 10/14/16 Aspirin [Adult Low Dose Aspirin EC] 81 mg PO DAILY 04/11/22 Atorvastatin [Lipitor] 20 mg PO HS 04/11/22 lisinopriL [Zestril] 10 mg PO DAILY 01/21/23 Alpha Lipoic Acid 600 mg PO DAILY 02/10/23 Metoprolol Succinate (ER) [Toprol Xl] 25 mg PO DAILY 02/10/23 Acetaminophen [Tylenol Arthritis] 650 mg PO 05/21/23 Controlled Substance Measures - Controlled Substance Measures Is patient prescribed a controlled substance at discharge?: No
== END ==
LOC: PNWHC3 08:54
PROVIDERS: ATTEND Specialist
DX: M51.37 Other intervertebral disc degeneration, lumbosacral region (principal); M47.817 Spondylosis without myelopathy or radiculopathy, lumbosacral region; G89.29 Other chronic pain; Z87.891 Personal history of nicotine dependence; Z79.82 Long term (current) use of aspirin; Z88.0 Allergy status to penicillin; Z91.041 Radiographic dye allergy status
CPT/HCPCS: 99211

== ENCOUNTER 2023-09-15 07:13 | Day surgery (SDC) | payer MEDICARE ==
[2023-09-09 15:42] VITALS: BMI 25.2
--- NOTE | 2023-09-15 06:56 | P.HPOR ---
History of Present Illness H&P Date: 09/15/23 .D:Date: 07/22/23 : 04:38pm .T:Title: [facility] Date of :[birth year] R14 Allergies: Age: 83 year Height: 4'11" Weight: 134 lbs BP:118/74 BMI: 27.06 kg/m2 Occupation: Retired VAS: 2 CHIEF COMPLAINT: Lumbar pain DOI: Chronic DOS: n/a Duration of current treatment regiment:9 months HISTORY: Xrays No new xrays taken in office Trauma or injury No Work-Related No Pain description dull, aching. Location posterior Patient notes that their pain radiates to left lower extremity Activity Modification yes Hand Dominance right TREATMENTS COMPLETED: 6 weeks of PT completed? Month and Year of last PT date? Yes in Oct 2022 How many sessions? 12 Did it help? No Physician directed home exercise completed? No Medications yes List: Aleve, Aspirin Alternative interventions Chiropractic: No Massage therapy: No R.I.C.E: yes Brace: No Injections Yes, 3 no relief RFA: No SUBJECTIVE: Ms. Avila returns the office for a recheck of her low back pain.Since her last visit patient has had 3 injections with the pain clinic, all with 0 relief. Patient reports pain in her hips and down the legs associated with a burning sensation. Patient continues to have low back pain that radiates into the left lower extremity, associated with numbness and tingling. Patient states her pain is exacerbated with standing and prolonged ambulation. She continues to take Aleve and Aspirin for her pain and symptoms.Patient is having severe sleep disturbances as well due to their ongoing pain and associated symptoms. Regarding treatments, the patient has previously trialed the above listed modalities. Patient denies trialing any other modalities at this time. Otherwise the patient denies any f/c/sob/cp, no bladder or bowel retention/incontinence, no perineal numbness/tingling, and ambulates independently. HPI: Ms. Avila returns the office on 12/29/22 for a recheck of her low back pain and MRI results. Patient continues to have low back pain that radiates into the left lower extremity, associated with numbness and tingling. Patient states that she has no changes in her symptoms since her last office visit. She awais nues to take Aleve and gabapentin for symptom management. MRI results have been reviewed and discussed.Patient is having severe sleep disturbances as well due to their ongoing pain and associated symptoms. Regarding treatments, the patient has previously trialed the above listed modalities. Patient denies trialing any other modalities at this time. Otherwise the patient denies any f/c/sob/cp, no bladder or bowel retention/incontinence, no perineal numbness/tingling, and ambulates independently. Ms. Avila was last seen on 12/02/22 regarding an evaluation of their low back pain. Patient reports a dull aching lumbar pain with a burning sensation ongoing for 8 months with no known injury or trauma to indicate an exact onset of their symptoms. In addition to their lumbar pain, they do report that it radiates into the left lower extremity, associated with numbness and tingling. Overall the patient has seen a progressive increase in symptoms since their onset. Ms. Avila symptoms are exacerbated with prolong sitting or standing, changing positions from sit to stand, and ambulating for a period of time, due to this they notes that it is increasingly difficult for Ms. Avila to complete many of their daily tasks. Patient is having severe sleep disturbances as well due to their ongoing pain and associated symptoms. Regarding treatments, the patient has previously trialed the above listed modalities. Patient denies trialing any other modalities at this time. For their symptoms, the patient has been taking Aleve. Otherwise the patient denies any f/c/sob/cp, no bladder or bowel retention/incontinence, no perineal numbness/tingling, and ambulates independently. The patients' past social, medical, family, surgical history, as well as review of systems, have been reviewed. Please refer to the Neurosurgery History and Physical form that has been scanned in to our electronic medical record system. 14 points review of systems completed and as stated in HPI, all other systems reviewed are negative. Social History: Reviewed, see appropriate section of the chart for details. P3 Family History: Reviewed, see appropriate section of the chart for details. P2 Past Medical History: Reviewed, see appropriate section of the chart for details. P1 Current Medications: Rx: Adults Multivitamin 18 mg iron-400 mcg-25 mcg tablet Ref: 0 Instructions: Take Tablet ORAL daily. Rx: aspirin Ref: 0 Instructions: Take Tablet DR ORAL daily. Rx: ATORVASTATIN CALCIUM 20MG ORAL Tablet, Ref: 0 Instructions: Take Tablet ORAL daily. Rx: CALCIUM 600MG ORAL Tablet, Ref: 0 Instructions: Take Tablet ORAL daily. Rx: lisinopriL-hydrochlorothiazide Ref: 0 Instructions: Take Tablet ORAL daily. Rx: omeprazole Ref: 0 Instructions: Take Caps DR ORAL daily. Rx: Vitamin D Ref: 0 Instructions: Take Liquid ORAL daily. Rx: ALENDRONATE SODIUM 70MG ORAL Tablet, Ref: 0 Instructions: Take Tablet ORAL . Rx: Aleve 220 mg tablet Ref: 0 Instructions: take 1 tablet (220 mg) by oral route every 12 hours as needed Rx: gabapentin 100 mg capsule Ref: 0 Instructions: take 2 capsule (200 mg) by oral route 3 times per day P1 PHYSICAL EXAMINATION: General: Awake, alert, appropriate for age, in no acute distress. HEENT: No unusual neck masses around region of lateral neck triangle, thyroid, supraclavicular groove Heart: Regular rate and rhythm, normal S1, S2 and no murmur/gallop. Lungs: Clear to auscultation bilaterally with no use of accessory muscles. Extremities: Skin warm and dry without acute lesions, coloration, temperature, skin intact, no tenderness or erythema Integument: Hairy patches: ABSENT Dorsal skin dimples: ABSENT Cafe au lait spots: ABSENT Surgical incisions: n/a Palpation: Please see Pain drawing on Intake sheet for further detail. Midline spinal tenderness: No E6 Cervical Tenderness: No E6 Paralumbar tenderness: No E6 Parathoracic tenderness: No E6 Buttocks tenderness: No E6 Sacroilliac Tenderness:Yes, left POSTURAL and MUSCULO-SKELETAL EVALUATION: Coronal Balance: NEUTRAL Recumbent testing: Patient is able to lay flat on back Sagittal Balance: NEUTRAL Shoulder Profile: LEVEL Pelvic Girdle: LEVEL Neck ROM: UNRESTRICTED Lumbar ROM: RESTRICTED Shoulder ROM: Symmetrical Hip ROM: Symmetrical Knee ROM: Symmetrical Hands: Normal appearance, symmetrical Feet: Normal appearance, Symmetrical VASCULAR STATUS : LEFT RIGHT Wrist Pulses INTACT INTACT Pedal Pulses (Dors. pedis & post.tibialis) INTACT INTACT Color NORMAL NORMAL Edema Absent Absent NEUROLOGIC EXAMINATION: Mental Status:Awake and alert, fully oriented, with normal attention, concentration and memory, and fluent, appropriate speech. Cranial Nerves: I: Olfactory not tested. II: Visual acuity normal, no visual field deficit noted with confrontation. III,IV: Normal pupillary reflexes & intact extraocular movements without nystagmus. V,: Intact symmetrical facial sensation. VII: Intact symmetrical facial motor movement VIII: Hearing intact. IX,X: Intact gag, swallow, & normal voice. XI: Sternocleidomastoid, trapezius function intact. XII: Tongue midline with normal movements. L'hermitte's Sign: Negative / absent Spurling'Sign: Absent bilaterally. Cubital percussion test: Absent bilaterally. Christopher-Tinel sign - Carpal region: Absent bilaterally. Straight Leg Raising: Positive left Crossed straight leg raise: negative O8 MOTOR EXAM (0-5/5, N/T Muscle appearance: Symmetrical, without signs of atrophy or dystrophy UPPER EXTREMITY RIGHT LEFT Shoulder Abduction 5/5 5/5 Biceps 5/5 5/5 Triceps 5/5 5/5 Wrist Extension 5/5 5/5 Hand Intrnsics 5/5 5/[address] Roller Engineer 5/5 5/5 Hand and finger dexterity intact bilaterally? yes Disdiadochokinesis examination negative bilaterally? yes LOWER EXTREMITY RIGHT LEFT Hip Flexion 5/5 5/5 Knee Extension 5/5 5/5 Knee Flexion 5/5 5/5 Dorsiflexion 5/5 5/5 Plantarflexion 5/5 5/5 EHL 5/5 5/5 FHL 5/5 5/5 Toe heel walk / heel-toe walk intact while maintaining satisfactory balance? yes Squatting/straightening w/o assistance to a min of 60 degree knee flexion? No Single leg stance: intact Trendelenburg sign negative bilaterally REFLEXES(0-4/2, NT)Upper ExtremityLower Extremity Right 2 2 Left 2 2 Pathological Reflexes RIGHT LEFT Christopher's Absent Absent Clonus Absent Absent Babinski Absent Absent Sensory system (0-4, N/T) Test type RU MORELIA RL LL Joint-Position 2 2 2 2 Vibration 2 2 2 2 Pain & LT sense 2 2 2 2 Dermatomal Deficit: None None None None Gait and Functional Evaluation: Ambulatory aids: Independent Romberg's test: Intact bilaterally Steady Gait Left SI joint pain + Fortins + Compression + Thigh RADIOGRAPHIC STUDIES: XRay Lumbar Multiview (AP, Lateral, Flexion, Extension) with AP pelvis; 5 views taken at [facility] on 12/02/22: Severe scoliotic curvature noted convex to the left. Grade 1 anteriolisthesis L4 onto L5, L5 onto S1. Grade 1 retrolisthesis L1 and L2. Vertebral body heights are preserved. No acute osseous abnormalities. MRI scancompleted at Outside facility from 12/19/22 [facility]: L1-L2: Moderate disc desiccation posterior disc bulge. Mild effacement ventral thecal sac. Right lateral recess stenosis and right foraminal encroachment. L2-L3: No evidence for disc herniation or protrusion. No significant degenerative disc disease. Mild ventral spondylosis. No central stenosis or foraminal encroachment. L3-L4 moderate disc desiccation posterior disc bulge. Effacement of the ventral thecal sac without evidence for herniation or central stenosis. No evidence for foraminal encroachment. L4-L5: Moderate to severe disc desiccation. Posterior disc bulge. Grade 1 anterior listhesis L4 and L5 measuring 7 mm. Facet joint arthropathy contribute to left lateral recess stenosis and left foraminal encroachment. L5-S1: Severe disc desiccation. Grade 1 anterolisthesis L5 on S1 measuring 5 mm. Posterior disc bulge with effacement ventral thecal sac. No evidence for central stenosis or disc herniation. Left foraminal encroachment. Impression: 1. Multilevel degenerative disc disease with lateral recess stenosis and grade 1 anterolisthesis as outlined above. IMPRESSION: It was my pleasure to have seen and examined Glory. I reviewed the patient's clinical syndrome, physical findings, and imaging studies during the appointment today. It is my impression that the patient has a diagnosis of. 1. Left sacroiliitis 2.Lumbar degenerative scoliosis 3. Lower left extremity pain 4. Lower left extremity radiculopathy I outlined the natural course history without intervention and various interventional options. We discussed non surgical options being but not limited to continued injections, medications OTC, supplemental and Rx. We discussed alternative medicines like chiropractics, acupuncture and massage. We discussed surgical options as well. SI fusion being the main treatment in a minimally invasive fashion. They have weighed their opotions and they feel that surgery at this time is the best option for them to acheive their goals. I agree with this. PLAN: Based on my findings I suggest the following course of action: -Advised patient to continue with supplements, health maintenance, and home exercise programs. Patient expressed understanding and will continue with these modalities. -I discussed treatment options with the patient, including operative and non- operative options, and they have elected to proceed with the following surgical procedure: Left SI joint fusion, MIS Needs injections first according to insurance The indications, risks, benefits, and alternatives to surgery were discussed with the patient at length. Specifically (but not limited to) the risks of infection, stiffness, recurrence of symptoms, need for revision surgery, local numbness, neurovascular injury, and blood clots were discussed. The patient's questions were answered. The decision to proceed was made. Consent will be obtained for the procedure. -Ambulate daily -Take medications as directed -Ice and rest for pain and swelling control. Spine Surgery Risk Review Ms. Avila is presenting for evaluation of low back pain. It was my pleasure to have seen and examined Ms. Avila. In our visit today we have had a chance to go over subjective complaints, physical examination findings and treatments including the natural course history without intervention and various interventional options. The patients imaging demonstrates: XRay Lumbar Multiview (AP, Lateral, Flexion, Extension) with AP pelvis; 5 views taken at [facility] on 12/02/22: Severe scoliotic curvature noted convex to the left. Grade 1 anteriolisthesis L4 onto L5, L5 onto S1. Grade 1 retrolisthesis L1 and L2. Vertebral body heights are preserved. No acute osseous abnormalities. MRI scancompleted at Outside facility from 12/19/22 [facility]: L1-L2: Moderate disc desiccation posterior disc bulge. Mild effacement ventral thecal sac. Right lateral recess stenosis and right foraminal encroachment. L2-L3: No evidence for disc herniation or protrusion. No significant degenerative disc disease. Mild ventral spondylosis. No central stenosis or foraminal encroachment. L3-L4 moderate disc desiccation posterior disc bulge. Effacement of the ventral thecal sac without evidence for herniation or central stenosis. No evidence for foraminal encroachment. L4-L5: Moderate to severe disc desiccation. Posterior disc bulge. Grade 1 anterior listhesis L4 and L5 measuring 7 mm. Facet joint arthropathy contribute to left lateral recess stenosis and left foraminal encroachment. L5-S1: Severe disc desiccation. Grade 1 anterolisthesis L5 on S1 measuring 5 mm. Posterior disc bulge with effacement ventral thecal sac. No evidence for central stenosis or disc herniation. Left foraminal encroachment. Impression: 1. Multilevel degenerative disc disease with lateral recess stenosis and grade 1 anterolisthesis as outlined above. On physical exam, Ms. Avila demonstrates: Since her last visit patient has had 3 injections with the pain clinic, all with 0 relief. Patient reports pain in her hips and down the legs associated with a burning sensation. Patient continues to have low back pain that radiates into the left lower extremity, associated with numbness and tingling. Patient states her pain is exacerbated with standing and prolonged ambulation. She continues to take Aleve and Aspirin for her pain and symptoms.Patient is having severe sleep disturbances as well due to their ongoing pain and associated symptoms. I have explained to the patient that as their condition progresses it will cause further neurological deficits and eventual paralysis. Based on the patients imaging, physical exam, and the rapid progression and disabling nature of their symptoms, at this time I recommend surgery in the form of a: Left SI joint fusion, MIS I discussed the risk and benefits of this procedure at length with Ms. Aivla. The patient agreed to considered pursuing the procedure abovementioned. Prior to surgery, she should follow up with her PCP (Cardio, ID, IM etc) for clearance. Questions were invited and answered, and the patient wishes to proceed as outlined below. Currently, I am recommendin.Left SI joint injection 2.Follow up with PCP for surgical clearance 3.Review of surgical risks and benefits as well as an educational packet on the proposed surgical procedure. Risks: All surgical procedures come with inherent risks, including those related to positioning, anesthesia, intraoperative findings, and postoperative complications. It is important to understand that surgery does not come with any guarantee of a successful outcome as complications and adverse events are always possible. The patient was given a handout in office today discussing the surgical procedure and risks associated with the intervention, both of which were discussed with the patient. These risks include but are not limited to the following: * Experiencing same, different or even worse symptoms in back, neck, arms, or legs compared to before surgery. Requiring further surgery or other forms of treatment presently or at some time in the future at same or other levels of the intended spine surgery. On an extreme but fortunately relatively rare basis severe complication such as blindness, stroke, heart attack, temporary and/or permanent nerve injury, paralysis, coma, or may occur, sometimes without known explanation. Surgical complications may include but are not limited to risk of infection, fluid accumulation in the surgical dissection site, including a seroma or hematoma, that requires additional surgery, wound drainage, bleeding, new numbness or weakness, vision changes/loss, spinal fluid leakage, non-healing and/or infected incision, headaches, difficulty or inability to swallow, hoarseness, hemopneumothorax, pneumothorax, impotence, retrograde ejaculation, vaginal dryness; injury to nerves, spinal cord, blood vessels, lymphatics or other vital organs (i.e., bowel injury, injury to the great vessels); heterotopic bone formation; complications related to the hardware such as screws, rods, cages including misplaced hardware, device failure, instrumentation at the wrong spine level, hardware fracture/breakage, or hardware loosening; vertebral failure of the spinal column above or below the newly placed hardware; retained surgical instrumentations or devices and the n eed for further surgery. * Medical risks of the planned spine surgery include but are not limited to generalized Infections to the whole body or local areas outside of the surgical site (sepsis), heart attack, bleeding, anaphylaxis, meningitis, seizure, epilepsy, hearing loss, burn montgomery, laceration of the head or other areas of the body, bruising, hypersensitivity of the skin, bladder over distension; allergic reaction; shoulder injury related to positioning; fat, blood and air clots to other areas of the body like heart, lungs, brain; failure of internal organs such as lungs, kidneys, liver and excessive bleeding. If blood transfusions are necessary, note that transfusions may cause intolerance reactions such as anaphylaxis or other complex reactions. Despite best efforts, the results of spine surgery might not heal in terms of bone, soft tissues such as skin, fascia, ligaments, and joints. Additionally, in order to achieve best possible results, spine surgery may be carried out beyond the initially planned levels and involve decompression, fusion including insertion of hardware at levels other than the original intended area of surgical interest change some portions of the procedure in order to ensure the best possible outcomes. With spine surgery and spinal fusion, there are different off label uses of instrumentation (devices, implants and hardware) as well as biological substances (bone morphogenic proteins, demineralized bone matrix) as well as using extra bone from allograft sources (i.e. cadaver bone) or autograft (iliac crest bone, ribs, or the spine itself). The patient has been given information about these practices and their inherent risks and benefits. [facility] is an educational center that serves as a training facility for neurosurgical and orthopedic ROLL [employer]ER and Nursing students. Physician assistants are medically trained surgical providers who function in the outpatient, inpatient, and operating room setting under the direct supervision of the attending surgeon. [facility] has multiple operating rooms with single and overlapping rooms running daily. They currently function under the required guidelines as produced by the [facility] Finance Committee with regards to the overlapping rooms and will continue to comply with changes to this policy as they occur. The requirements include and are complied with as follows: (1) the critical portions of the overlapping rooms will not occur at the same time, (2) the attending physician will be physically present during the critical portions of the procedure and immediately available during the entire case, and (3) a back-up attending is designated should the primary attending not be immediately available. The patient has had a chance to review all the listed information, has been given print outs detailing this information, and has had all his/her questions answered to their satisfaction. It was my pleasure to have seen and examined Ms. Avila. In our visit today we have had a chance to go over my understanding of our patient's current condition, the natural course history without intervention and various interventional options. Questions were invited and answered, and the patient wishes to proceed as outlined above. I have seen and examined the patient for 25 minutes and we have spent more than 50% of the time in repeat and detailed counseling about the patient's condition, its natural course history with out and as much as can be predicted with surgery and re-review of various surgical treatment options. In conclusion, Ms. Avila requested we proceed with the above suggested surgery and are willing to accept risks and limitations of the suggested surgery as nature of the disease process and our best attempts at treatment for the condition. Thank you again for allowing us to be part of your patient's care. Please don't hesitate to contact me if you have any further questions. Follow-up: Post procedure Patient Education: (Informational booklet, instructions, etc) given at today's appointment: Yes .ED:Patient Education: Y Medications Reviewed: YES In our visit today Ms. Avila and I have had a chance to go over my unders tanding of the patient's current condition, the natural course history without intervention and various interventional options. Questions were invited and answered, and the patient wishes to proceed as outlined above. I will be sure to keep you updated afterMs. Margarita returns here for further follow-up. Thank you again for your referral. Please do not hesitate to contact me if you have any further questions. Signed and authenticated by: Samuel Cruz [facility] [address], [address] [address] This message is confidential, intended only for the named recipient(s) and may contain information that is privileged or exempt from disclosure under applicable law. If you are not the intended recipient(s), you are notified that the dissemination, distribution or copying of this information is strictly prohibited. If you received this message in error, please notify the sender then delete this message. Patient verbalizes understanding of the information discussed. The above note was initiated by Kenneth Sandoval, physician recording marketing assistant manager for Dr. Samuel Garcia. This note has been reviewed by Dr. Garcia, who has made his personal changes and impressions for this document. CC: Laz Soto M.D. # SIGNED BY Samuel Garcia ([facility])08/09/2023 07:43PM Past Medical History Past Medical History: GERD/Reflux, Hyperlipidemia, Hypertension, Osteoarthritis (OA), Syncope Additional Past Medical History / Comment(s): Vasovagal syncope, surgery aborted 04/15/22 when pt received nerve block and had seizure like activity - pt states she passed out, per Dr Daniels's note -testing was negative. History of Any Multi-Drug Resistant Organisms: None Reported Past Surgical History: Appendectomy, Breast Surgery, Section, Joint Replacement Additional Past Surgical History / Comment(s): Bilateral total shoulder replacements, RIGHT BREAST BIOPSY, COLONOSCOPY, BILATERAL CATARACTS REMOVED, Pain Injections. Past Anesthesia/Blood Transfusion Reactions: Previous Problems w/ Anesthesia Additional Past Anesthesia/Blood Transfusion Reaction / Comment(s): Pt states she passed out with nerve block March 2022-they thought she may have had a seizure, surgery was cancelled and per Dr daniels's note- testing was negative for seizures, patient states she has syncope. Past Psychological History: No Psychological Hx Reported Smoking Status: Former smoker, Light tobacco smoker Past Alcohol Use History: Occasional Additional Past Alcohol Use History / Comment(s): QUIT SMOKING 25 YRS AGO, only smoked occasionally. Past Drug Use History: None Reported - Past Family History Father Family Medical History: Cancer Additional Family Medical History / Comment(s): LUNG CANCER. Mother Family Medical History: Osteoarthritis (OA) Sister(s) Family Medical History: Cancer Brother(s) Family Medical History: Cancer Additional Family Medical History / Comment(s): Prostate cancer. Medications and Allergies Home Medications Medication Instructions Recorded Confirmed Type Cholecalciferol [Vitamin D3 (25 2,000 unit PO DAILY 10/14/16 09/09/23 History Mcg = 1000 Iu)] Multivitamins, Thera [Multivitamin 1 tab PO DAILY 10/14/16 09/09/23 History (formulary)] Omeprazole [PriLOSEC] 20 mg PO DAILY 10/14/16 09/09/23 History Aspirin [Adult Low Dose Aspirin EC] 81 mg PO DAILY 04/11/22 09/09/23 History Atorvastatin [Lipitor] 20 mg PO HS 04/11/22 09/09/23 History lisinopriL [Zestril] 10 mg PO HS 01/21/23 09/09/23 History Metoprolol Succinate (ER) [Toprol 25 mg PO QAM 02/10/23 09/09/23 History Xl] Acetaminophen [Tylenol Arthritis] 650 mg PO DAILY 05/21/23 09/09/23 History Allergies Allergy/AdvReac Type Severity Reaction Status Date / Time Penicillins Allergy Anaphylaxis Verified 09/09/23 15:03 red,yellow,blue dye AdvReac hives, Uncoded 09/09/23 15:03 itching Physical Examination Osteopathic Statement: *. No significant issues noted on an osteopathic structural exam other than those noted in the History and Physical/Consult.
[~2023-09-15 07:13] MED LIST changes: -LACTATED RINGERS 1,000 ML IV SCH; -LIDOCAINE 1% (10MG/ML) FOR IV START INTRADERMA PRN; +Pre Op ABX Message 1 EACH MISC MISCELLANE ONE
[2023-09-15] MEDS ORDERED: methylPREDNISolone ACETATE 40 MG/ML 1 ML VIAL INTRAARTIC ONE ×2 (07:34→07:57)
[2023-09-15] MEDS ORDERED: LIDOCAINE 2%-EPI 1:100,000 20 ML VIAL SQ ONE ×2 (07:34→07:57)
[2023-09-15] MEDS ORDERED: IOPAMIDOL-370 50ML BTL MISCELLANE ONE ×2 (07:34→07:57)
[2023-09-15] MEDS ORDERED: BUPIVACAINE (PF) 0.5% 30 ML VIAL SQ ONE ×2 (07:34→07:57)
[2023-09-15 07:37] VITALS: TEMP 96
--- NOTE | 2023-09-15 07:44 | P.OP ---
Date of Procedure: 09/15/23 Preoperative Diagnosis: 1. LEFT SIJ OA SEVERE 2. LOW BACK PAIN Postoperative Diagnosis: 1. LEFT SIJ OA SEVERE 2. LOW BACK PAIN Procedure(s) Performed: 1. LEFT SIJ INJECTION UNDER FLOUROSCOPIC GUIDANCE Implants: NONE Anesthesia: local Surgeon: Samuel Garcia Estimated Blood Loss (ml): 2 IV fluids (ml): 0 Urine output (ml): 0 Pathology: none sent Condition: stable Disposition: PACU Indications for Procedure: Ms. Avila is presenting for evaluation of low back pain. It was my pleasure to have seen and examined Ms. Avila. In our visit today we have had a chance to go over subjective complaints, physical examination findings and treatments including the natural course history without intervention and various interventional options. The patients imaging demonstrates: XRay Lumbar Multiview (AP, Lateral, Flexion, Extension) with AP pelvis; 5 views taken at [facility] on 12/02/22: Severe scoliotic curvature noted convex to the left. Grade 1 anteriolisthesis L4 onto L5, L5 onto S1. Grade 1 retrolisthesis L1 and L2. Vertebral body heights are preserved. No acute osseous abnormalities. MRI scancompleted at Outside facility from 12/19/22 of [facility]: L1-L2: Moderate disc desiccation posterior disc bulge. Mild effacement ventral thecal sac. Right lateral recess stenosis and right foraminal encroachment. L2-L3: No evidence for disc herniation or protrusion. No significant degenerative disc disease. Mild ventral spondylosis. No central stenosis or foraminal encroachment. L3-L4 moderate disc desiccation posterior disc bulge. Effacement of the ventral thecal sac without evidence for herniation or central stenosis. No evidence for foraminal encroachment. L4-L5: Moderate to severe disc desiccation. Posterior disc bulge. Grade 1 anterior listhesis L4 and L5 measuring 7 mm. Facet joint arthropathy contribute to left lateral recess stenosis and left foraminal encroachment. L5-S1: Severe disc desiccation. Grade 1 anterolisthesis L5 on S1 measuring 5 mm. Posterior disc bulge with effacement ventral thecal sac. No evidence for central stenosis or disc herniation. Left foraminal encroachment. Impression: 1. Multilevel degenerative disc disease with lateral recess stenosis and grade 1 anterolisthesis as outlined above. On physical exam, Ms. Avila demonstrates: Since her last visit patient has had 3 injections with the pain clinic, all with 0 relief. Patient reports pain in her hips and down the legs associated with a burning sensation. Patient continues to have low back pain that radiates into the left lower extremity, associated with numbness and tingling. Patient states her pain is exacerbated with standing and prolonged ambulation. She continues to take Aleve and Aspirin for her pain and symptoms.Patient is having severe sleep disturbances as well due to their ongoing pain and associated symptoms. I have explained to the patient that as their condition progresses it will cause further neurological deficits and eventual paralysis. Based on the patients imaging, physical exam, and the rapid progression and disabling nature of their symptoms, at this time I recommend surgery in the form of a: Left SI joint fusion, MIS I discussed the risk and benefits of this procedure at length with Ms. Avila. The patient agreed to considered pursuing the procedure abovementioned. Prior to surgery, she should follow up with her PCP (Cardio, ID, IM etc) for clearance. Questions were invited and answered, and the patient wishes to proceed as outlined below. Currently, I am recommendin.Left SI joint injection Description of Procedure: LEFT SIJ injection The patient was seen and examined in the preoperative area. All preoperative protocols were followed. Informed consent was obtained, risks and benefits of the procedure were discussed at length. Risks including bleeding infection damage to the surrounding tissue and risk of reoperation were discussed with the patient. Risk of anesthesia up to and including was discussed with the patient. These are outlined in the risk review. They were willing to accept these risks and all of the risks of surgery. The patient was seen and evaluated by the anesthesia team who deemed them fit for surgery. The site was marked, the patient was willing to proceed with the procedure. The patient was transferred to the operative suite by the Department of anesth esia. They were then drifted off to sleep by the department anesthesia and sedation with local was performed. The patient tolerated this well. Once confirmation of lines and ventilation the patient was transferred to a prone Rajesh table very carefully. All bony prominences including wrists, elbows, axilla, chest, hips, and thighs, and feet were padded very well. Special attention was paid to the genitalia and these were padded accordingly. SCDs were placed on bilateral lower extremities and were connected. Arms were well padded and placed on arm boards up and out in the 90/90 position. Once in position, again we confirmed good ventilation capabilities and that lines were running appropriately. The patient's lumbopelvic spine was then exposed. 1010s were placed outlining the incision site. Standard alcohol was used to clean the incision site and allowed to dry. C-arm was used to biomark the patient and confirm level for incision which was marked with a skin marker. Operative briefing was performed with all teams and everyone in agreement to proceed. The patient was then prepped and draped in a normal sterile fashion. Timeout was then performed and all parties were in agreement with the procedure to be performed. Biplanar fluoroscopy was used to identify the LEFT SI joints which were then accessed with a 18-gauge needle after anesthetic was placed into the subcutaneous tissue in the form of 1% with epinephrine of lidocaine along with a mixture of cortical percent Marcaine without epinephrine. Once there is good anesthesia and the SI joints were accessed Isovue was used to confirm within the joint space. Once this was confirmed 40 of Kenalog along with a mixture of lidocaine and Marcaine were injected into the SI joint. Patient remained stable the entire time without any radicular symptoms during the injection phase. The needles were withdrawn and the area cleaned and Band-Aids placed. The patient was transferred back to their hospital bed atraumatically. Patient was then awakened and extubated by the department of anesthesia having tolerated the procedure very well with no complications. They were transferred to the postoperative care unit in stable condition.
[2023-09-15 08:38] VITALS: BP 129/79; PULSE 59; RESP 20
--- NOTE | 2023-09-15 08:57 | FL ---
Intraoperative/procedural fluoroscopic services were provided for left SI joint injection. Total fluo roscopy time is 1.6 seconds with a total of 1 submitted image to PACS. Total DAP 0.1001 Gycm2. Stanley denis see the operative note for further details.
== END 2023-09-15 08:31 | disposition home or self-care (01) ==
LOC: OR 07:13
PROVIDERS: ATTEND Orthopaedic Surgery
DX: M46.1 Sacroiliitis, not elsewhere classified (principal); M51.37 Other intervertebral disc degeneration, lumbosacral region; I10 Essential (primary) hypertension; E78.5 Hyperlipidemia, unspecified; K21.9 Gastro-esophageal reflux disease without esophagitis; Z90.49 Acquired absence of other specified parts of digestive tract; Z98.890 Other specified postprocedural states; Z87.891 Personal history of nicotine dependence; Z80.1 Family history of malignant neoplasm of trachea, bronchus and lung; Z82.61 Family history of arthritis; Z79.899 Other long term (current) drug therapy
CPT/HCPCS: G0260; J1030; Q9967; J0665

== ENCOUNTER → 2024-05-23 | Outpatient (CLI) | payer MEDICARE ==
--- NOTE | 2024-05-23 16:21 | CT ---
EXAMINATION TYPE: CT lumbar spine wo con CT DLP: 419.20 mGycm, Automated exposure control for dose reduction was used. DATE OF EXAM: 05/23/2024 3:05 PM COMPARISON: 08/12/2023. CLINICAL INDICATION:Female, 84 years old with history of [id number] low back pain; PHH, Low back pain, sci atica, eval SI joints. TECHNIQUE: Multiple axial images were obtained from the midportion of T11 through the sacroiliac amy nts. Soft tissue and bone windows in coronal and sagittal planes were obtained and reviewed. Contrast used: mL of , (None, if empty). Oral contrast used: (None, if empty). FINDINGS: Alignment: There are 5 lumbar type vertebral bodies. Levoscoliotic curvature of the lumbar spine with apex at L3. Grade 2 anterolisthesis of L5 on S1 and grade 1 anterolisthesis of L4 on L5. R etrolisthesis of L1 on L2. Bone: No evidence of fracture is identified. Multilevel endplate sclerosis with anterior osteophytos is and facet joint arthropathy. Pseudoarthrosis of the spinous processes. Discs: Multilevel disc space narrowing with vacuum disc disease. T12-L1: No spinal canal or neural foraminal stenosis is identified. L1-L2: Mild retrolisthesis with mild central canal narrowing. Mild right neural foraminal stenosis. L eft neural foramen is patent. L2-L3: Broad-based disc bulge with mild effacement of the anterior thecal sac. The neural foramen are patent bilaterally. L3-L4: Broad-based disc bulge with mild effacement of the anterior thecal sac. Bilateral facet arthro maren. The neural foramen are patent bilaterally. L4-L5: Grade 1 anterolisthesis with uncovering of the disc and bilateral facet arthropathy contribut e to mild central canal stenosis. Mild bilateral neural foraminal stenosis. L5-S1: Grade 1 anterolisthesis. No significant central canal stenosis. Bilateral facet arthropathy wi th severe left neural foraminal stenosis. The right neural foramen is patent. Other: Scattered calcified granulomas within the liver and spleen. Tortuosity of the abdominal aorta with moderate atherosclerotic plaque. Small fat filled umbilical hernia. IMPRESSION: Overall findings are not significantly changed from prior. 1. No evidence for spinal fracture. 2. Grade 2 anterolisthesis of L5 on S1 and grade 1 anterolisthesis of L4 and L5. Spondylolysis of L5 3. 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 4. Moderate multilevel degenerative disc disease and facet arthropathy as described above. No foramin al stenosis worse at L5-S1 on the left with severe stenosis. 5. Sequelae of prior granulomatous disease. 6. Levoscoliotic curvature of the lumbar spine with apex at L3.
== END | disposition home or self-care (01) ==
LOC: RADCTMAIN 13:13
PROVIDERS: ATTEND Orthopaedic Surgery
DX: M43.17 Spondylolisthesis, lumbosacral region (principal); M47.816 Spondylosis without myelopathy or radiculopathy, lumbar region; M51.36 Other intervertebral disc degeneration, lumbar region
CPT/HCPCS: 72131

== ENCOUNTER 2024-06-14 05:37 | Day surgery (SDC) | payer MEDICARE ==
[2024-06-10 11:46] VITALS: BMI 25.4
[~2024-06-14 05:37] MED LIST changes: -Pre Op ABX Message 1 EACH MISC MISCELLANE ONE; +TRANEXAMIC 1,000 MG/100ML-NACL 1,000 MG in SALINE 1 100ML.BAG IVPB PRN
[2024-06-14] MEDS ORDERED: LIDOCAINE 1% (10MG/ML) FOR IV START INTRADERMA PRN (05:49)
[2024-06-14] MEDS: IV FLUID CONTINUATION 1,000 ML IV ONE ×5 (06:17→10:53)
--- NOTE | 2024-06-14 06:17 | P.HPOR ---
History of Present Illness H&P Date: 06/08/24 .D:Date: 06/08/24 : 02:45pm .T:Title: [facility] Age: 84 year Height: 4'11" Weight: 125 lbs BP:118/74 BMI: 25.25 kg/m2 Occupation: Retired VAS: 7 IMPRESSION: It was my pleasure to have seen and examinedWandan.I reviewed the patient's clinical syndrome, physical findings, and imaging studies during the appointment today. It is my impression that the patient has a diagnosis of. 1. Left sacroiliitis 2. Low back pain 3. Lumbosacral spondylosis, SIJ b/l Spine Surgery Risk Review Ms. Avila is presenting for evaluation of low back and left lower extremity pain. It was my pleasure to have seen and examined Ms. Avila. In our visit today we have had a chance to go over subjective complaints, physical examination findings and treatments including the natural course history without intervention and various interventional options. The patients imaging demonstrates: XRay Lumbar Multiview (AP, Lateral, Flexion, Extension) with AP pelvis; 5 views taken at [facility] on 12/02/22: - Re-reviewed with the patient today. Severe scoliotic curvature noted convex to the left. Grade 1 anterolisthesis L4 onto L5, L5 onto S1.Grade 1 retrolisthesis L1 and L2. Vertebral body heights are preserved. No acute osseous abnormalities. MRI scancompleted at [id number] [facility]: - Re-reviewed with the patient today. L1-L2: Moderate disc desiccation posterior disc bulge. Mild effacement ventral thecal sac. Right lateral recess stenosis and right foraminal encroachment. L2-L3: No evidence for disc herniation or protrusion. No significant degenerative disc disease. Mild ventral spondylosis. No central stenosis or foraminal encroachment. L3-L4 moderate disc desiccation posterior disc bulge. Effacement of the ventral thecal sac without evidence for herniation or central stenosis. No evidence for foraminal encroachment. L4-L5: Moderate to severe disc desiccation. Posterior disc bulge. Grade 1 anterior listhesis L4 and L5 measuring 7 mm. Facet joint arthropathy contribute to left lateral recess stenosis and left foraminal encroachment. L5-S1: Severe disc desiccation. Grade 1 anterolisthesis L5 on S1 measuring 5 mm. Posterior disc bulge with effacement ventral thecal sac. No evidence for central stenosis or disc herniation. Left foraminal encroachment. Impression: 1. Multilevel degenerative disc disease with lateral recess stenosis and grade 1 anterolisthesis as outlined above. On physical exam, Ms. Avila demonstrates: A continued burning, ache-like pain around the left side of the low back that radiates down into the posterior and lateral aspects of the left lower extremity. She notes her left leg pain is associated with numbness and tingling. She states her symptoms worsen after prolonged sitting, when going from a seated to standing position, or when going up the stairs. I have explained to the patient that as their condition progresses it will cause further neurological deficits and eventual paralysis. Based on the patients imaging, physical exam, and the rapid progression and disabling nature of their symptoms, at this time I recommend surgery in the form of a: Left MIS SI joint fusion. I discussed the risk and benefits of this procedure at length with Ms. Avila. The patient agreed to considered pursuing the procedure abovementioned. Prior to surgery, she should follow up with her PCP (Cardio, ID, IM etc) for clearance. Questions were invited and answered, and the patient wishes to proceed as outlined below. Currently, I am recommendin.LEFT MINIMALLY INVASIVE SACROILIAC JOINT FUSION 3.Review of surgical risks and benefits as well as an educational packet on the proposed surgical procedure. Risks: All surgical procedures come with inherent risks, including those related to positioning, anesthesia, intraoperative findings, and postoperative com plications. It is important to understand that surgery does not come with any guarantee of a successful outcome as complications and adverse events are always possible. The patient was given a handout in office today discussing the surgical procedure and risks associated with the intervention, both of which were discussed with the patient. These risks include but are not limited to the following: * Experiencing same, different or even worse symptoms in back, neck, arms, or legs compared to before surgery. Requiring further surgery or other forms of treatment presently or at some time in the future at same or other levels of the intended spine surgery. On an extreme but fortunately relatively rare basis severe complication such as blindness, stroke, heart attack, temporary and/or permanent nerve injury, paralysis, coma, or may occur, sometimes without known explanation. Surgical complications may include but are not limited to risk of infection, fluid accumulation in the surgical dissection site, including a seroma or hematoma, that requires additional surgery, wound drainage, bleeding, new numbness or weakness, vision changes/loss, spinal fluid leakage, non-healing and/or infected incision, headaches, difficulty or inability to swallow, hoarseness, hemopneumothorax, pneumothorax, impotence, retrograde ejaculation, vaginal dryness; injury to nerves, spinal cord, blood vessels, lymphatics or other vital organs (i.e., bowel injury, injury to the great vessels); heterotopic bone formation; complications related to the hardware such as screws, rods, cages including misplaced hardware, device failure, instrumentation at the wrong spine level, hardware fracture/breakage, or hardware loosening; vertebral failure of the spinal column above or below the newly placed hardware; retained surgical instrumentations or devices and the need for further surgery. * Medical risks of the planned spine surgery include but are not limited to generalized Infections to the whole body or local areas outside of the surgical site (sepsis), heart attack, bleeding, anaphylaxis, meningitis, seizure, epilepsy, hearing loss, burn montgomery, laceration of the head or other areas of the body, bruising, hypersensitivity of the skin, bladder over distension; allergic reaction; shoulder injury related to positioning; fat, blood and air clots to other areas of the body like heart, lungs, brain; failure of internal organs such as lungs, kidneys, liver and excessive bleeding. If blood transfusions are necessary, note that transfusions may cause intolerance reactions such as anaphylaxis or other complex reactions. Despite best efforts, the results of spine surgery might not heal in terms of bone, soft tissues such as skin, fascia, ligaments, and joints. Additionally, in order to achieve best possible results, spine surgery may be carried out beyond the initially planned levels and involve decompression, fusion including insertion of hardware at levels other than the original intended area of surgical interest change some portions of the procedure in order to ensure the best possible outcomes. With spine surgery and spinal fusion, there are different off label uses of i nstrumentation (devices, implants and hardware) as well as biological substances (bone morphogenic proteins, demineralized bone matrix) as well as using extra bone from allograft sources (i.e. cadaver bone) or autograft (iliac crest bone, ribs, or the spine itself). The patient has been given information about these practices and their inherent risks and benefits. [facility] is an educational center that serves as a training facility for neurosurgical and orthopedic PRODUCT MARKETING DIRECTOR and Nursing students. Physician assistants are medically trained surgical providers who function in the outpatient, inpatient, and operating room setting under the direct supervision of the attending surgeon. [facility] has multiple operating rooms with single and overlapping rooms running daily. They currently function under the required guidelines as produced by the [facility] Finance Committee with regards to the overlapping rooms and will continue to comply with changes to this policy as they occur. The requirements include and are complied with as follows: (1) the critical portions of the overlapping rooms will not occur at the same time, (2) the attending physician will be physically present during the critical portions of the procedure and immediately available during the entire case, and (3) a back-up attending is designated should the primary attending not be immediately available. The patient has had a chance to review all the listed information, has been given print outs detailing this information, and has had all his/her questions answered to their satisfaction. It was my pleasure to have seen and examined Ms. Avila. In our visit today we have had a chance to go over my understanding of our patient's current condition, the natural course history without intervention and various interventional options. Questions were invited and answered, and the patient wishes to proceed as outlined above. I have seen and examined the patient for 25 minutes and we have spent more than 50% of the time in repeat and detailed counseling about the patient's condition, its natural course history with out and as much as can be predicted with surgery and re-review of various surgical treatment options. In conclusion, Ms. Avila requested we proceed with the above suggested surgery and are willing to accept risks and limitations of the suggested surgery as nature of the disease process and our best attempts at treatment for the condition. FOLLOW UP: Post Procedure PATIENT EDUCATION: Medications Reviewed: YES In our visit today Ms. Avila and I have had a chance to go over my understanding of the patient's current condition, the natural course history without intervention and various interventional options. Questions were invited and answered, and the patient wishes to proceed as outlined above. I will be sure to keep you updated after Ms. Avila returns here for further follow-up. Thank you again for your referral. Please do not hesitate to contact me if you have any further questions. Signed and authenticated by: Samuel Cruz [facility] [address] [place] [address] . This message is confidential, intended only for the named recipient(s) and may contain information that is privileged or exempt from disclosure under applicable law. If you are not the intended recipient(s), you are notified that the dissemination, distribution or copying of this information is prohibited. If you received this message in error, please notify the sender then delete this message. Past Medical History Past Medical History: GERD/Reflux, Hyperlipidemia, Hypertension, Osteoarthritis (OA), Syncope Additional Past Medical History / Comment(s): vasovagal syncope, Surgery aborted 04/15/22 when pt received nerve block shoulder surgery and had seizure like activity- pt states "followed up with neurologist and neurologist felt it was syncope episode-per Dr Bowen's note -testing negative seizures." History of Any Multi-Drug Resistant Organisms: None Reported Past Surgical History: Appendectomy, Breast Surgery, Section, Joint Replacement Additional Past Surgical History / Comment(s): 10/21/16 total R shoulder arthroplasty. RT BREAST BX, COLONOSCOPY, BILAT CATARACTS REMOVED,left shoulder surgery 2021 Past Anesthesia/Blood Transfusion Reactions: Previous Problems w/ Anesthesia Additional Past Anesthesia/Blood Transfusion Reaction / Comment(s): Surgery aborted 04/15/22 when pt received nerve block shoulder surgery and had seizure like activity- pt states "followed up with neurologist and neurologist felt it was syncope episode-per Dr Bowen's note -testing negative seizures." No hx blood transfusion Smoking Status: Former smoker - Past Family History Father Family Medical History: Cancer Additional Family Medical History / Comment(s): LUNG CANCER. Mother Family Medical History: Osteoarthritis (OA) Sister(s) Family Medical History: Cancer Brother(s) Family Medical History: Cancer Additional Family Medical History / Comment(s): Prostate cancer. Medications and Allergies Home Medications Medication Instructions Recorded Confirmed Type Cholecalciferol [Vitamin D3 (25 2,000 unit PO DAILY 10/14/16 06/14/24 History Mcg = 1000 Iu)] Multivitamins, Thera [Multivitamin 1 tab PO DAILY 10/14/16 06/14/24 History (formulary)] Omeprazole [PriLOSEC] 20 mg PO QAM 10/14/16 06/14/24 History Aspirin [Adult Low Dose Aspirin EC] 81 mg PO DAILY 04/11/22 06/14/24 History Atorvastatin [Lipitor] 20 mg PO HS 04/11/22 06/14/24 History lisinopriL [Zestril] 10 mg PO HS 01/21/23 06/14/24 History Metoprolol Succinate (ER) [Toprol 25 mg PO QAM 02/10/23 06/14/24 History Xl] Acetaminophen [Tylenol Arthritis] 500 - 1,000 mg PO Q6H PRN 05/21/23 06/14/24 History Celecoxib [CeleBREX] 200 mg PO BID 06/10/24 06/14/24 History Allergies Allergy/AdvReac Type Severity Reaction Status Date / Time Penicillins Allergy Anaphylaxis Verified 06/14/24 06:11 Physical Examination Osteopathic Statement: *. No significant issues noted on an osteopathic structural exam other than those noted in the History and Physical/Consult. Assessment and Plan (1) Sacroiliitis Current Visit: No Status: Acute Code(s): M46.1 - SACROILIITIS, NOT ELSEWHERE CLASSIFIED SNOMED Code(s): 15229378 (2) Sacrococcygeal disorders, not elsewhere classified Current Visit: Yes Status: Acute Code(s): M53.3 - SACROCOCCYGEAL DISORDERS, NOT ELSEWHERE CLASSIFIED SNOMED Code(s): 404643927 (3) Spondylosis without myelopathy or radiculopathy, sacral and sacrococcygeal region Current Visit: Yes Status: Acute Code(s): M47.818 - SPONDYLS W/O MYELPATH OR RADICULOPATHY, SACR/SACROCYGL RGN SNOMED Code(s): 12325893
[2024-06-14] MEDS: ACETAMINOPHEN TAB 500 MG TAB PO PRN (06:46)
[2024-06-14] MEDS: ONDANSETRON 4 MG/2 ML VIAL IVP PRN (06:46)
[2024-06-14] MEDS: GABAPENTIN 300 MG CAP PO PRN (06:46)
[2024-06-14] MEDS: LACTATED RINGERS 1,000 ML IV SCH (06:51)
[2024-06-14] MEDS ORDERED: fentaNYL (PF) 50 MCG/ML 2 ML AMP ONE (07:23)
[2024-06-14] MEDS ORDERED: PHENYLEPHRINE 10 MG/ML VIAL ONE (07:23)
[2024-06-14] MEDS ORDERED: LIDOCAINE 1% INJ 10MG/ML (20 ML MDV) ONE (07:23)
[2024-06-14] MEDS ORDERED: SUCCINYLCHOLINE CHLORIDE 200 MG/10 ML VIAL IV ONE (07:23)
[2024-06-14] MEDS ORDERED: PROPOFOL 10 MG/ML 20 ML VIAL IV ONE (07:23)
[2024-06-14] MEDS ORDERED: ROCURONIUM 10 MG/ML (5 ML VIAL) IV ONE (07:23)
[2024-06-14] MEDS ORDERED: GLYCOPYRROLATE 0.2 MG/ML 2 ML VIAL ONE (07:23)
[2024-06-14] MEDS ORDERED: TRANEXAMIC 1,000 MG/100ML-NACL PREMIX BAG ONE (07:23)
[2024-06-14] MEDS ORDERED: NEOSTIGMINE 1 MG/ML 10 ML VIAL ONE (07:23)
[2024-06-14] MEDS: BUPIVACAINE (PF) 0.5% 30 ML VIAL SQ ONE (09:10)
[2024-06-14] MEDS: LIDOCAINE 2%-EPI 1:100,000 20 ML VIAL SQ ONE (09:10)
--- NOTE | 2024-06-14 09:21 | P.OP ---
Date of Procedure: 06/14/24 Preoperative Diagnosis: Current Active Problems Sacrococcygeal disorders, not elsewhere classified (Acute) Spondylosis without myelopathy or radiculopathy, sacral and sacrococcygeal region (Acute) Sacroiliitis (Acute) Postoperative Diagnosis: Current Active Problems Sacrococcygeal disorders, not elsewhere classified (Acute) Spondylosis without myelopathy or radiculopathy, sacral and sacrococcygeal region (Acute) Sacroiliitis (Acute) Procedure(s) Performed: 1. LEFT MINIMALLY INVASIVE LATERAL SACROILLIAC JOINT FUSION 2. USE OF [employer] NAVIGATION FOR SCREW PLANNING AND PLACEMENT Implants: SI BONE TORQUE SCREWS 10.5 MM 50/45/50 MM (3 SCREWS) AUTORGRAFT Anesthesia: GETA Surgeon: Samuel Garcia Lift Supervisor #1: Kevin Marino (WAS PRESENT AND ASSISTED WITH ALL ASPECTS OF THE CASE FROM POSITION TO CLOSURE) Estimated Blood Loss (ml): 50 IV fluids (ml): 1,100 Urine output (ml): 0 Pathology: none sent Condition: stable Disposition: PACU Indications for Procedure: Ms. Avila is presenting for evaluation of low back and left lower extremity pain. It was my pleasure to have seen and examined Ms. Avila. In our visit today we have had a chance to go over subjective complaints, physical examination findings and treatments including the natural course history without intervention and various interventional options. The patients imaging demonstrates: XRay Lumbar Multiview (AP, Lateral, Flexion, Extension) with AP pelvis; 5 views taken at [facility] on 12/02/22: - Re-reviewed with the patient today. Severe scoliotic curvature noted convex to the left. Grade 1 anterolisthesis L4 onto L5, L5 onto S1.Grade 1 retrolisthesis L1 and L2. Vertebral body heights are preserved. No acute osseous abnormalities. MRI scancompleted at [facility] [id number] [facility]: - Re-reviewed with the patient today. L1-L2: Moderate disc desiccation posterior disc bulge. Mild effacement ventral thecal sac. Right lateral recess stenosis and right foraminal encroachment. L2-L3: No evidence for disc herniation or protrusion. No significant degenerative disc disease. Mild ventral spondylosis. No central stenosis or foraminal encroachment. L3-L4 moderate disc desiccation posterior disc bulge. Effacement of the ventral thecal sac without evidence for herniation or central stenosis. No evidence for foraminal encroachment. L4-L5: Moderate to severe disc desiccation. Posterior disc bulge. Grade 1 anterior listhesis L4 and L5 measuring 7 mm. Facet joint arthropathy contribute to left lateral recess stenosis and left foraminal encroachment. L5-S1: Severe disc desiccation. Grade 1 anterolisthesis L5 on S1 measuring 5 mm. Posterior disc bulge with effacement ventral thecal sac. No evidence for central stenosis or disc herniation. Left foraminal encroachment. Impression: 1. Multilevel degenerative disc disease with lateral recess stenosis and grade 1 anterolisthesis as outlined above. On physical exam, Ms. Avila demonstrates: A continued burning, ache-like pain around the left side of the low back that radiates down into the posterior and lateral aspects of the left lower extremity. She notes her left leg pain is associated with numbness and tingling. She states her symptoms worsen after prolonged sitting, when going from a seated to standing position, or when going up the stairs. I have explained to the patient that as their condition progresses it will cause further neurological deficits and eventual paralysis. Based on the patients imaging, physical exam, and the rapid progression and disabling nature of their symptoms, at this time I recommend surgery in the form of a: Left MIS SI joint fusion. I discussed the risk and benefits of this procedure at length with Ms. Avila. The patient agreed to considered pursuing the procedure abovementioned. Prior to surgery, she should follow up with her PCP (Cardio, ID, IM etc) for clearance. Questions were invited and answered, and the patient wishes to proceed as outlined below. Currently, I am recommendin.LEFT MINIMALLY INVASIVE SACROILIAC JOINT FUSION Description of Procedure: Left SI fusion MIS (CRISTELA) The patient was seen and examined in the preoperative area. All preoperative protocols were followed. Informed consent was obtained, risks and benefits of the procedure were discussed at length. Risks including bleeding infection damage to the surrounding tissue and risk of reoperation were discussed with the patient. Risk of anesthesia up to and including was discussed with the patient. These are outlined in the risk review. They were willing to accept these risks and all of the risks of surgery. The patient was given a weight- based dose of antibiotics in the form of 2 g Ancef. The patient was seen and evaluated by the anesthesia team who deemed them fit for surgery. The site was marked, the patient was willing to proceed with the procedure. The patient was transferred to the operative suite by the Department of anesthesia. They were then drifted off to sleep by the department anesthesia and GETA was performed. The patient tolerated this well. Once confirmation of lines and ventilation the patient was transferred to a [prone Rajesh table very carefully]. All bony prominences including wrists, elbows, axilla, chest, hips, and thighs, and feet were padded very well. Special attention was paid to the genitalia and these were padded accordingly. SCDs were placed on bilateral lower extremities and were connected. Arms were well padded and placed [on arm boards up and out in the 90/90 position]. Once in position, again we confirmed good ventilation capabilities and that lines were running appropriately. The patient's lumbopelvic spine was then exposed. 1010s were placed outlining the incision site. Standard alcohol was used to clean the incision site and allowed to dry. C-arm was used to biomark the patient and confirm level for incision which was marked with a skin marker. Operative briefing was performed with all teams and everyone in agreement to proceed. The patient was then prepped and draped in a normal sterile fashion. Timeout was then performed and all parties were in agreement with the procedure to be performed. Skin nicks were made over the PSIS on the right side and pins placed for [employer] Tracker system. Tracker attached and 3D Zhiem spin registered. Once confirmed to be accurate, skin incision was then made over the previously marked area over the left upper buttock region of the patient following the alar lines and mid sacral line. Blunt dissection was then taken down to the ilium. Navigated Jamshidi was then used to place a pin optimally within the SI region superiorly and into S1 body. This was then measured and drilled and a screw placed using navigated instruments. Then using the parallel guide and a navigated jamshidi, a second screw was placed in the anterior inferior position in a similar fashion that was then repeated for the inferior posterior screw. All screws had ex cellent purchase and were confirmed to be in good position on AP lateral inlet and outlet views. Neuro monitoring was then used to test the superior screw for L5 and S1 and these tested above 20 mA. No neuro monitoring changes during surgery, no EMG. Final fluoroscopic images then confirmed good placement of hardware. We then thoroughly irrigated the wound. Deep fascia was closed with 0 Vicryl superficial closed with 2-0 Vicryl and skin closed with carri. The wound was then cleaned and dressed with skin glue which was allowed to dry and then a Band-Aid. The patient was transferred back to their hospital bed atraumatically. Patient was then awakened and extubated by the department of anesthesia having tolerated the procedure very well with no complications. They were transferred to the p ostoperative care unit in stable condition.
[2024-06-14 09:46] VITALS: RESP 16; TEMP 97.2
--- NOTE | 2024-06-14 09:54 | FL ---
Fluoroscopy History: LEFT SI JOINT FUSION L SI joint fusion, 1min 5sec fl time, LJS=7618.40
[2024-06-14] MEDS: HYDROmorphone 0.5 MG/0.5 ML SYRINGE IVP PRN (10:00)
[2024-06-14 11:31] VITALS: BP 113/74; PULSE 55
== END 2024-06-14 12:16 | disposition home or self-care (01) ==
LOC: OR 05:37
PROVIDERS: ATTEND Orthopaedic Surgery
DX: M46.1 Sacroiliitis, not elsewhere classified (principal); M53.3 Sacrococcygeal disorders, not elsewhere classified; M47.818 Spondylosis without myelopathy or radiculopathy, sacral and sacrococcygeal region; M43.17 Spondylolisthesis, lumbosacral region; M51.37 Other intervertebral disc degeneration, lumbosacral region; M48.061 Spinal stenosis, lumbar region without neurogenic claudication; I12.9 Hypertensive chronic kidney disease with stage 1 through stage 4 chronic kidney disease, or unspecified chronic kidney disease; N18.31 Chronic kidney disease, stage 3a; K21.9 Gastro-esophageal reflux disease without esophagitis; E78.5 Hyperlipidemia, unspecified; E55.9 Vitamin D deficiency, unspecified; Z88.0 Allergy status to penicillin; Z88.2 Allergy status to sulfonamides; Z91.041 Radiographic dye allergy status; Z82.61 Family history of arthritis; Z87.891 Personal history of nicotine dependence; Z79.82 Long term (current) use of aspirin; Z79.899 Other long term (current) drug therapy
CPT/HCPCS: 72220; 27279; C1713; J0330; J2710; J0690; J2405; J2001; J3010; J2704; J1170; J2371; J0665; J1596

== ENCOUNTER → 2024-08-16 | Outpatient (CLI) | payer MEDICARE ==
--- NOTE | 2024-08-16 14:30 | CT ---
EXAMINATION TYPE: CT pelvis wo con DATE OF EXAM: 08/16/2024 COMPARISON: None HISTORY: Post op follow up LT SI fusion CT DLP: 244 mGycm Automated exposure control for dose reduction was used. Unenhanced CT of the pelvis was performed wit h bone and soft tissue window settings submitted. FINDINGS: Severe degenerative change of the lower lumbar spine. Postoperative changes with screw fixation left SI joint. I do not see evidence for acute fracture of the pelvis or hips at this time. Mild degenerat roger narrowing of the hip joints seen bilaterally. Fat-containing left inguinal hernia. No evidence fo r distinct pelvic mass. IMPRESSION: [facility], , 08/16/2024 2:28 PM
== END | disposition home or self-care (01) ==
LOC: RADCTMAIN 13:48
PROVIDERS: ATTEND Orthopaedic Surgery
DX: R10.2 Pelvic and perineal pain
CPT/HCPCS: 72192

== ENCOUNTER 2025-02-17 10:34 | Day surgery (SDC) | payer MEDICARE ==
--- NOTE | 2025-02-17 08:03 | P.HPOR ---
History of Present Illness H&P Date: 01/09/25 .D:Date: 01/09/25 : 04:25pm .T:Title: RECHECK H1 [facility] [address] [place] [id number]| PROVIDER: MARSHA CABALLERO DO CLINICAL SUMMARY: Ms. Glory Avila, an 84-year-old female (4'11", 122 lbs, BMI 24.73 kg/m), presented on January 09, 2025, for follow-up evaluation of lumbar pain (VAS 4/10) and MRI results. Patient reported persistent left low back/buttock pain and left lateral calf pain exacerbated by leg bending, transitioning from sitting to standing, and navigating stairs. Physical examination revealed paralumbar tenderness, restricted lumbar ROM, positive straight leg raise on the left, motor weakness (4/5) in the left lower extremity, and dermatomal deficit in L4-S1 distribution. MRI from December 27, 2024, demonstrated degenerative lumbar scoliosis, L4/5 and L5/S1 spondylosis with moderate to severe stenosis, bilateral foraminal stenosis, and degenerative changes from L1-S1. Following comprehensive discussion of treatment options, risks, and benefits, patient agreed to proceed with L4-S1 LEFT LAMINOFORAMINOTOMY. Patient was instructed to follow up with PCP for surgical clearance, continue home exercises, heat/ice therapy, and maintain current medications. DEMOGRAPHICS: Age: 84 year Height: 4'11" Weight: 122 lbs BP:130/80 BMI: 24.73 kg/m2 Occupation: Retired CC: lumbar pain VAS: 4 HISTORY: Ms. Avila presents to the office today, 01/09/25, for a recheck of her lumbar pain and MRI results. Patient continues to report left low back/buttock pain and left lateral calf pain. She states she only has pain in these 2 locations. She denies numbness and tingling. Patient states her pain is increased with bending her left leg, sit to stand, and stairs. Patient is currently taking Tylenol for her symptoms. She states the Robaxin did not provide any relief. Patient ambulates independently. * Patient denies any f/c/sob/cp, perineal numbness or tingling, bowel, or bladder incontinence/retention. * The patients past social, medical, family, surgical history, as well as review of systems, have been reviewed. Please refer to the History and Physical form that has been scanned into our electronic medical record system. * 16 points review of systems completed and as stated in HPI, all other systems reviewed are negative. PAST TREATMENTS: PAST IMAGING: -YES, xray, CT and MRI - TRAUMA RELATED: -NO - WORK RELATED: -NO - PT IN LAST 6 MONTHS: -YES - PHYSICIAN DIRECTED HOME EXERCISE PROGRAM: -YES - ACTIVITY MODIFICAITON: -YES - MEDICATIONS: -YES, Tylenol and Robaxin - ALTERNATIVE INTERVENTIONS (CHIROPRACTIC, ACCUPUNCTURE, MASSAGE, RICE): -YES - BRACING: -NO - INJECTIONS (HANDY, TF, RFA): -YES, previously had SI injections - MEDICAL HISTORY: Past Medical History: REVIEWED STATED IN CHART Past Surgical History: REVIEWED STATED IN CHART Social History: REVIEWED STATED IN CHART SMOKING: Never smoker ETOH: None SUBSTANCES: None Family History: REVIEWED STATED IN CHART P1 Current Medications: Rx: ATORVASTATIN CALCIUM 20MG ORAL Tablet, Ref: 0 Instructions: Take Tablet ORAL daily. Rx: Vitamin D Ref: 0 Instructions: Take Liquid ORAL daily. Rx: lisinopriL 10 mg tablet Ref: 0 Instructions: take 1 tablet (10 mg) by oral route once daily Rx: metoprolol succinate ER 25 mg tablet,extended release 24 hr Ref: 0 Instructions: take 1 tablet (25 mg) by oral route once daily Rx: multivitamin Ref: 0 Instructions: DAILY Rx: omeprazole 20 mg capsule,delayed release Ref: 0 Instructions: take 1 capsule (20 mg) by oral route once daily 30 minutes to 1 hour before a meal Rx: Tylenol Arthritis Ref: 0 Instructions: as needed P1 PHYSICAL EXAM: General: AOX3, NAD, Well hydrate, well nourished, in no acute distress HEENT: No lumps or masses Extremities: No color changes, no pooling INTEGUMENT: Appearance: Normal color and turgor Surgical Incisions: Healed Hairy Patches: ABSENT Dorsal Skin Dimples: Normal [employer] spots: ABSENT PALPATION: TTP Midline: NO Paracervical: NO Parathoracic: NO Paralumbar: YES SIJ TESTING (Mike's, FABER4, Compression, Distraction, Thigh Thrust, Hip Thrust): TESTED * POSITIVE FINDINGS: NEGATIVE FINDINGS: Mike's, FABER4, Compression, Distraction, Thigh Thrust, Hip Thrust POSTURAL BALANCE: Coronal: BALANCED Sagittal: BALANCED Shoulder height: LEVEL Pelvic Girdle: LEVEL ROM AND APPEARANCE: Neck: UNRESTRICTED Lumbar: RESTRICTED Shoulders: Symmetrical Hips: Symmetrical Knees: Symmetrical Hands: Symmetrical Feet: Symmetrical VASCULAR STATUS: PALPABLE PULSES B/L UE AND LE 2/4 RAD/ULNAR/DP/PT Edema: NONE NEUROLOGICAL EXAMINATION: Mental Status: Awake, alert, fully oriented with normal attention, concentration, and memory. Fluent appropriate speech. CRANIAL NERVES: I: Olfactory not assessed. II: Visual acuity normal, no visual field deficit noted with confrontation. III, IV: Normal pupillary reflexes & intact extraocular movements without nystagmus. V, : Intact symmetrical facial sensation. VII: Intact symmetrical facial motor movement: Hearing intact. IX, X: Intact gag, swallow, & normal voice. XI: Sternocleidomastoid, trapezius function intact. XII: Tongue midline with normal movements. TENSIONING: * L'HERMITTE'S SIG:NEG SPURLUNG'S SIGN:NEG UPPER EXTREMITY TENSIONING SIGNS: NEG CUBITAL TUNNEL COMPRESSION:NEG TINELS AT WRIST:NEG STRAIGH LEG RAISE:POS LEFT CONTRALATERAL STRAIGHT LEG RAISE: NEG MOTOR EXAM (0-5/5, NT) Muscle appearance: Symmetrical, without signs of atrophy or dystrophy UPPER EXTREMITY RIGHT LEFT Shoulder Abduction 5 5 Biceps 5 5 Triceps 5 5 Wrist Extension 5 5 Hand Intrinsics 5 5 Business Objects Report Developer 5 5 LOWER EXTREMITY RIGHT LEFT Hip Flexion 5 4 Knee Extension 5 4 Knee Flexion 5 4 Dorsiflexion 5 4 Plantarflexion 5 4 EHL 5 4 FHL 5 4 REFLEXES (0-4/2, NT): RIGHT LEFT Bicep 2 2 Brachioradialis 2 2 Triceps 2 2 Patellar 2 2 Achilles 2 2 PATHOLOGICAL REFLEXES: RIGHT LEFT MEZA'S ABSENT ABSENT CLONUS ABSENT ABSENT BABINSKI ABSENT ABSENT RECTAL TONE: INTACT/NT SENSATION (0-4, NT): Sensation intact to LT and Pain * C5-T1 distribution BUE * L2-S2 distribution BLE *Exceptions below* DERMATOMAL DEFICIT/RADICULAR PATTERN: L4-S1 GAIT AND FUNCTIONAL EVALUATION: AMBULATORY AID NONE ROMBERG'S TEST INTACT HAND AND FINGER DEXTERITY INTACT YES DYSDIADOCHOKINESIA EXAM NEG B/L YES TOE/HEEL WALK INTACT WITH GOOD BALANCE NO SQUAT AND RISE W/O ASSISTANCE TO 60 DEG KNEE FLEXION NO SINGLE LEG STANCE NOT ABLE TRENDELENBURG NEG IMAGING: XRay Lumbar Multiview (AP, Lateral, Flexion, Extension) with AP pelvis; 5 views taken at [facility] on 12/02/22: - Re-reviewed with the patient today. Severe scoliotic curvature noted convex to the left. Grade 1 anterolisthesis L4 onto L5, L5 onto S1.Grade 1 retrolisthesis L1 and L2. Vertebral body heights are preserved. No acute osseous abnormalities. CT Exam: CT Pelvis without contrast Date: 08/16/2024 Facility: [facility] Clinical Context: Post-operative follow-up after L/SI fusion Herrera Findings Lumbar Spine: Severe degenerative changes Post-surgical changes with screw fixation at left SI joint No acute fracture or dislocation Hip Joints: Mild bilateral degenerative narrowing Otherwise preserved alignment Soft Tissues: Fat-containing left inguinal hernia noted No suspicious pelvic masses Technical Notes CT DLP: 244 mGycm Automated exposure control utilized Both bone and soft tissue windows reviewed Clinical Assessment Hardware placement appears appropriate No acute post-operative complications identified Chronic degenerative changes as described Incidental left inguinal hernia noted for clinical correlation MRI Date: 12/27/24 Location: Outside facility Region: Lumbar Contrast: N IMAGES ARE REVIEWED WITH THE PATIENT IN OFFICE AND DEMONSTRATE THE FOLLOWING: FINDINGS: * DEGENERATIVE LUMBAR SCOLIOSIS L4/5 AND L5/S1 SPONDYLOSIS WITH STENOSIS, MODERATE TO SEVERE WITH B/L FORAMINAL STENOSIS DEGENERATIVE CHANGES FROM L1-S1 WITH DISC HEIGHT LOSS, FACET ARTHROSIS, LIGAMENTAL OVERGROWTH AND VARYING DEGREES OF STENOSIS. IMPRESSION: It was my pleasure to have seen and examined Glory. I reviewed the patient's clinical syndrome, physical findings, and imaging studies during the appointment today. It is my impression that the patient has a diagnosis of. 1.L4-5 spondylosis with stenosis 2.L5-S1 spondylosis with stenosis 3.Left lower extremity radiculopathy PLAN: DISCUSSION: -I have discussed with the patient their clinical signs and symtpoms, imaging, and treatment options. We have discussed risks, benefits, potential outcomes and natural course as pertains top their issues. The patient understands and would like to proceed as follows below: SURGICAL RECOMMENDATION -L4-S1 LEFT LAMINOFORAMINOTOMY THERAPIES -Cont. with home exercises and home PT exercises as able -Cont. with Heat/Ice as warranted -Cont. with supplementation Vit D, Vit C, Ca2+, High protein diet -OK for massage or other alternative treatment modalities as able. If it exacerbates your sx do not continue ACTIVITY -Recommend walking up to 30 min 2x daily on a flat easy surface with good support. -WORK STATUS: N/A MEDICATIONS -Take as directed -Cont. home medications as directed by your PCP. Check with your PCP for any medication interactions or issues if needed. IMAGING -N/A INJECTIONS -N/A Spine Surgery Risk Review Ms. Avila is presenting for evaluation of lumbar and left lower extremity pain. It was my pleasure to have seen and examined Ms. Avila. In our visit today we have had a chance to go over subjective complaints, physical examination findings and treatments including the natural course history without intervention and various interventional options. The patients imaging demonstrates: XRay Lumbar Multiview (AP, Lateral, Flexion, Extension) with AP pelvis; 5 views taken at [facility] on 12/02/22: - Re-reviewed with the patient today. Severe scoliotic curvature noted convex to the left. Grade 1 anterolisthesis L4 onto L5, L5 onto S1.Grade 1 retrolisthesis L1 and L2. Vertebral body heights are preserved. No acute osseous abnormalities. CT Exam: CT Pelvis without contrast Date: 08/16/2024 Facility: [facility] Clinical Context: Post-operative follow-up after L/SI fusion Herrera Findings Lumbar Spine: Severe degenerative changes Post-surgical changes with screw fixation at left SI joint No acute fracture or dislocation Hip Joints: Mild bilateral degenerative narrowing Otherwise preserved alignment Soft Tissues: Fat-containing left inguinal hernia noted No suspicious pelvic masses Technical Notes CT DLP: 244 mGycm Automated exposure control utilized Both bone and soft tissue windows reviewed Clinical Assessment Hardware placement appears appropriate No acute post-operative complications identified Chronic degenerative changes as described Incidental left inguinal hernia noted for clinical correlation MRI Date: 12/27/24 Location: Outside facility Region: Lumbar Contrast: N IMAGES ARE REVIEWED WITH THE PATIENT IN OFFICE AND DEMONSTRATE THE FOLLOWING: FINDINGS: * DEGENERATIVE LUMBAR SCOLIOSIS L4/5 AND L5/S1 SPONDYLOSIS WITH STENOSIS, MODERATE TO SEVERE WITH B/L FORAMINAL STENOSIS DEGENERATIVE CHANGES FROM L1-S1 WITH DISC HEIGHT LOSS, FACET ARTHROSIS, LIGAMENTAL OVERGROWTH AND VARYING DEGREES OF STENOSIS. On physical exam, Ms. Avila demonstrates: Patient continues to report left low back/buttock pain and left lateral calf pain. She states she only has pain in these 2 locations. She denies numbness and tingling. Patient states her pain is increased with bending her left leg, sit to stand, and stairs. Patient is currently taking Tylenol for her symptoms. She states the Robaxin did not provide any relief. Patient ambulates independently. I have explained to the patient that as their condition progresses it will cause further neurological deficits and eventual paralysis. Based on the patients imaging, physical exam, and the rapid progression and disabling nature of their symptoms, at this time I recommend surgery in the form of a: L4-S1 LEFT LAMINOFORAMINOTOMY. I discussed the risk and benefits of this procedure at length with Ms. Avila. The patient agreed to considered pursuing the procedure abovementioned. Prior to surgery, she should follow up with her PCP (Cardio, ID, IM etc) for clearance. Questions were invited and answered, and the patient wishes to proceed as outlined below. Currently, I am recommendin. L4-S1 LEFT LAMINOFORAMINOTOMY 2.Follow up with PCP for surgical clearance 3.Review of surgical risks and benefits as well as an educational packet on the proposed surgical procedure. Risks: All surgical procedures come with inherent risks, including those related to positioning, anesthesia, intraoperative findings, and postoperative complications. It is important to understand that surgery does not come with any guarantee of a successful outcome as complications and adverse events are always possible. The patient was given a handout in office today discussing the surgical procedure and risks associated with the intervention, both of which were discussed with the patient. These risks include but are not limited to the following: * Experiencing same, different or even worse symptoms in back, neck, arms, or legs compared to before surgery. Requiring further surgery or other forms of treatment presently or at some time in the future at same or other levels of the intended spine surgery. On an extreme but fortunately relatively rare basis severe complication such as blindness, stroke, heart attack, temporary and/or permanent nerve injury, paralysis, coma, or may occur, sometimes without known explanation. Surgical complications may include but are not limited to risk of infection, fluid accumulation in the surgical dissection site, including a seroma or hematoma, that requires additional surgery, wound drainage, bleeding, new numbness or weakness, vision changes/loss, spinal fluid leakage, non-healing and/or infected incision, headaches, difficulty or inability to swallow, hoarseness, hemopneumothorax, pneumothorax, impotence, retrograde ejaculation, vaginal dryness; injury to nerves, spinal cord, blood vessels, lymphatics or other vital organs (i.e., bowel injury, injury to the great vessels); heterotopic bone formation; complications related to the hardware such as screws, rods, cages including misplaced hardware, device failure, instrumentation at the wrong spine level, hardware fracture/breakage, or hardware loosening; vertebral failure of the spinal column above or below the newly placed hardware; retained surgical instrumentations or devices and the need for further surgery. * Medical risks of the planned spine surgery include but are not limited to generalized Infections to the whole body or local areas outside of the surgical site (sepsis), heart attack, bleeding, anaphylaxis, meningitis, seizure, epilepsy, hearing loss, burn montgomery, laceration of the head or other areas of the body, bruising, hypersensitivity of the skin, bladder over distension; allergic reaction; shoulder injury related to positioning; fat, blood and air clots to other areas of the body like heart, lungs, brain; failure of internal organs such as lungs, kidneys, liver and excessive bleeding. If blood transfusions are necessary, note that transfusions may cause intolerance reactions such as anaphylaxis or other complex reactions. Despite best efforts, the results of spine surgery might not heal in terms of bone, soft tissues such as skin, fascia, ligaments, and joints. Additionally, in order to achieve best possible results, spine surgery may be carried out beyond the initially planned levels and involve decompression, fusion including insertion of hardware at levels other than the original intended area of surgical interest change some portions of the procedure in order to ensure the best possible outcomes. With spine surgery and spinal fusion, there are different off label uses of instrumentation (devices, implants and hardware) as well as biological substances (bone morphogenic proteins, demineralized bone matrix) as well as using extra bone from allograft sources (i.e. cadaver bone) or autograft (iliac crest bone, ribs, or the spine itself). The patient has been given information about these practices and their inherent risks and benefits. [facility] is an educational center that serves as a training facility for neurosurgical and orthopedic GERIATRIC PHYSICIAN and Nursing students. Physician assistants are medically trained surgical providers who function in the outpatient, inpatient, and operating room setting under the direct supervision of the attending surgeon. [facility] has multiple operating rooms with single and overlapping rooms running daily. They currently function under the required guidelines as produced by the [facility] with regards to the overlapping rooms and will continue to comply with changes to this policy as they occur. The requirements include and are complied with as follows: (1) the critical portions of the overlapping rooms will not occur at the same time, (2) the attending physician will be physically present during the critical portions of the procedure and immediately available during the entire case, and (3) a back-up attending is designated should the primary attending not be immediately available. The patient has had a chance to review all the listed information, has been given print outs detailing this information, and has had all his/her questions answered to their satisfaction. It was my pleasure to have seen and examined Ms. Avila. In our visit today we have had a chance to go over my understanding of our patient's current condition, the natural course history without intervention and various interventional options. Questions were invited and answered, and the patient wishes to proceed as outlined above. I have seen and examined the patient for 25 minutes and we have spent more than 50% of the time in repeat and detailed counseling about the patient's condition, its natural course history with out and as much as can be predicted with surgery and re-review of various surgical treatment options. In conclusion, Ms. Avila requested we proceed with the above suggested surgery and are willing to accept risks and limitations of the suggested surgery as nature of the disease process and our best attempts at treatment for the condition. Medical Necessity Note: Ms. Glory Avila demonstrates clear medical necessity for the proposed L4-S1 LEFT LAMINOFORAMINOTOMY based on her persistent and progressive neurological symptoms. The patient presents with documented left low back/buttock pain and left lateral calf pain (VAS 4/10) that significantly impacts her mobility and quality of life, particularly with activities such as bending her left leg, transitioning from sitting to standing, and climbing stairs. Physical examination confirms paralumbar tenderness, restricted lumbar range of motion, positive straight leg raise on the left, motor weakness (4/5) in the left lower extremity, and dermatomal deficit in L4-S1 distribution. Advanced imaging via MRI dated December 27, 2024, objectively confirms degenerative lumbar scoliosis, L4/5 and L5/S1 spondylosis with moderate to severe stenosis, bilateral foraminal stenosis, and degenerative changes from L1-S1. Conservative management including Tylenol and muscle relaxants (Robaxin) has failed to provide adequate symptom relief, making surgical intervention medically necessary to prevent further neurological deterioration and to address the patient's functional limitations. Surgical Rationale Note: \\ The recommended L4-S1 LEFT LAMINOFORAMINOTOMY is specifically indicated for Ms. Avila based on the correlation between her clinical symptoms and radiographic findings. The procedure targets the anatomical structures responsible for her neurological compromisespecifically the moderate to severe stenosis at L4/5 and L5/S1 with bilateral foraminal narrowing that corresponds precisely to her left lower extremity symptoms. This targeted decompressive procedure aims to relieve pressure on the affected nerve roots while preserving spinal stability and minimizing tissue disruption. Given the patient's advanced age (84) and the focused nature of her pathology, this minimally invasive approach represents the most appropriate surgical strategy to achieve neural decompression while minimizing operative risks and recovery time. The natural history of her condition, without surgical intervention, indicates high probability of continued neurological deterioration potentially leading to permanent nerve damage and functional disability. The potential benefits of surgerypain relief, improved mobility, and prevention of further neurological compromiseoutweigh the inherent surgical risks that have been thoroughly discussed with the patient. FOLLOW UP: PRE-OP PLAN AT NEXT VISIT: RECHECK PATIENT EDUCATION: Medications Reviewed: YES In our visit today Ms. Avila and I have had a chance to go over my understanding of the patient's current condition, the natural course history without intervention and various interventional options. Questions were invited and answered, and the patient wishes to proceed as outlined above. I will be sure to keep you updated after Ms. Avila returns here for further follow-up. Thank you again for your referral. Please do not hesitate to contact me if you have any further questions. Signed and authenticated by: Marsha Pierson [facility] [address], [address] [address] . This message is confidential, intended only for the named recipient(s) and may contain information that is privileged or exempt from disclosure under applicable law. If you are not the intended recipient(s), you are notified that the dissemination, distribution or copying of this information is prohibited. If you received this message in error, please notify the sender then delete this message. # SIGNED BY Marsha Caballero (GOO)01/21/2025 09:17AM Past Medical History Past Medical History: GERD/Reflux, Hyperlipidemia, Hypertension, Osteoarthritis (OA), Seizure Disorder, Syncope Additional Past Medical History / Comment(s): vasovagal syncope, Surgery aborted 04/15/22 when pt received nerve block and had seizure like activity- pt states she passed out, per Dr Bowen-testing negative for seizures History of Any Multi-Drug Resistant Organisms: None Reported Past Surgical History: Appendectomy, Breast Surgery, Section, Joint Replacement Additional Past Surgical History / Comment(s): 10/21/16 total R shoulder arthroplasty. RT BREAST BX, COLONOSCOPY, BILAT CATARACTS REMOVED, left shoulder replaced 04/2022 Past Anesthesia/Blood Transfusion Reactions: Previous Problems w/ Anesthesia Additional Past Anesthesia/Blood Transfusion Reaction / Comment(s): pt states she passed out with nerve block March 2022-they thought she may have had a seizure, surgery was cancelled, had testing w/neuro. who R/O seizures, has had surgery since then w/no problems Smoking Status: Former smoker - Past Family History Father Family Medical History: Cancer Additional Family Medical History / Comment(s): LUNG CANCER. Mother Family Medical History: Osteoarthritis (OA) Sister(s) Family Medical History: Cancer Brother(s) Family Medical History: Cancer Additional Family Medical History / Comment(s): Prostate cancer. Medications and Allergies Home Medications Medication Instructions Recorded Confirmed Type Cholecalciferol [Vitamin D3 (25 2,000 unit PO DAILY 10/14/16 02/14/25 History Mcg = 1000 Iu)] Multivitamins, Thera [Multivitamin 1 tab PO DAILY 10/14/16 02/14/25 History (formulary)] Omeprazole [PriLOSEC] 20 mg PO QAM 10/14/16 02/14/25 History Aspirin [Adult Low Dose Aspirin EC] 81 mg PO DAILY 04/11/22 02/14/25 History Atorvastatin [Lipitor] 20 mg PO HS 04/11/22 02/14/25 History lisinopriL [Zestril] 10 mg PO HS 01/21/23 02/14/25 History Metoprolol Succinate (ER) [Toprol 25 mg PO QAM 02/10/23 02/14/25 History Xl] Acetaminophen [Tylenol Arthritis] 500 - 1,000 mg PO Q6H PRN 05/21/23 02/14/25 History Famotidine [Pepcid] 20 mg PO DIRECTED PRN 02/14/25 02/14/25 History Allergies Allergy/AdvReac Type Severity Reaction Status Date / Time Penicillins Allergy Anaphylaxis Verified 02/14/25 10:46 red dye Allergy Rash/Hives Verified 02/14/25 10:46 Sulfa (Sulfonamide Allergy Rash/Hives Verified 02/14/25 10:46 Antibiotics) yellow dye Allergy Rash/Hives Verified 02/14/25 10:46 Physical Examination Osteopathic Statement: *. No significant issues noted on an osteopathic structural exam other than those noted in the History and Physical/Consult.
[~2025-02-17 10:34] MED LIST changes: +ACETAMINOPHEN TAB 500 MG TAB PO PRN; +HYDROmorphone 0.5 MG/0.5 ML SYRINGE IVP PRN; +MIDAZOLAM 2 MG/2 ML VIAL IV PRN
[2025-02-17] MEDS: IV FLUID CONTINUATION 1,000 ML IV ONE ×3 (11:09→11:35)
[2025-02-17] MEDS: LACTATED RINGERS 1,000 ML IV SCH (11:27)
[2025-02-17] MEDS: GABAPENTIN 300 MG CAP PO PRN (11:39)
[2025-02-17] MEDS: ONDANSETRON 4 MG/2 ML VIAL IVP PRN (11:39)
[2025-02-17] MEDS ORDERED: fentaNYL (PF) 50 MCG/ML 2 ML AMP ONE (12:35)
[2025-02-17] MEDS ORDERED: LIDOCAINE 1% INJ 10MG/ML (20 ML MDV) ONE (12:35)
[2025-02-17] MEDS ORDERED: ROCURONIUM 10 MG/ML (5 ML VIAL) IV ONE (12:35)
[2025-02-17] MEDS ORDERED: HYDROmorphone (PF) 1 MG/ML ONE (12:35)
[2025-02-17] MEDS ORDERED: TRANEXAMIC 1,000 MG/100ML-NACL PREMIX BAG ONE (12:35)
[2025-02-17] MEDS ORDERED: SUCCINYLCHOLINE CHLORIDE 200 MG/10 ML VIAL IV ONE (12:35)
[2025-02-17] MEDS ORDERED: GLYCOPYRROLATE 0.2 MG/ML 2 ML VIAL ONE (12:35)
[2025-02-17] MEDS ORDERED: ePHEDrine 50 MG/ML 1 ML VIAL ONE (12:35)
[2025-02-17] MEDS ORDERED: NEOSTIGMINE 1 MG/ML 10 ML VIAL ONE (12:35)
[2025-02-17] MEDS ORDERED: PROPOFOL 10 MG/ML 20 ML VIAL IV ONE (12:35)
[2025-02-17] MEDS: THROMBIN (BOVINE) 5,000 UNIT VIAL TOPICAL ONE (13:14)
[2025-02-17 15:41] VITALS: TEMP 96.8
--- NOTE | 2025-02-17 15:42 | FL ---
EXAMINATION TYPE: FL guidance operating room, XR lumbar spine 2 or 3V DATE OF EXAM: 02/17/2025 CLINICAL INDICATION: Female, 84 years old with history of L4-S1 Laminoforaminotomy, low back pain. TECHNIQUE: Fluoroscopy. Intraoperative 2 views lumbar spine. COMPARISON: CT lumbar spine May 23, 2024. FINDINGS: Fluoroscopic guidance was provided during L4-S1 Laminoforaminotomy,procedure performed by Dr. Garcia. A total of 33.2 seconds of fluoroscopic time was utilized during the procedure and 3 spot images was acquired. Intraoperative images acquired show needle localization in the lower lumbar spine for surgical planni ng. TOTAL DAP = 4.8667 Gycm2. IMPRESSION: As Above. [facility], , 02/17/2025 3:40 PM
[2025-02-17 15:46] VITALS: RESP 16
[2025-02-17 17:15] VITALS: BP 112/68; PULSE 80
--- NOTE | 2025-02-23 20:22 | P.OP ---
Date of Procedure: 02/17/25 Preoperative Diagnosis: 1. LUMBAR STENOISIS WITH RADICULOPATHY LLE 2. SEVERE SPONDYLOSIS L4-S1 WITH STENOSIS 3. NEUROGENIC CLAUDICATION 4. LLE WEAKNESS 5. LOW BACK PAIN Postoperative Diagnosis: 1. LUMBAR STENOISIS WITH RADICULOPATHY LLE 2. SEVERE SPONDYLOSIS L4-S1 WITH STENOSIS 3. NEUROGENIC CLAUDICATION 4. LLE WEAKNESS 5. LOW BACK PAIN Procedure(s) Performed: 1. L4-5 AND L5-S1 LAMINOFORAMINOTOMY NOTE: LEFT MIS Implants: NONE Anesthesia: GETA Surgeon: Samuel Garcia Travel Med Surg Rn #1: Micah Virgen (WAS PRESENT AND ASSISTED WITH ALL ASPECTS OF THE CASE FROM POSITION TO DRESSING PLACEMENT) Estimated Blood Loss (ml): 50 IV fluids (ml): 1,000 Urine output (ml): 250 Pathology: none sent Condition: stable Disposition: PACU Indications for Procedure: Ms. Glory Avila, an 84-year-old female (4'11", 122 lbs, BMI 24.73 kg/m), presented on January 09, 2025, for follow-up evaluation of lumbar pain (VAS 4/10) and MRI results. Patient reported persistent left low back/buttock pain and left lateral calf pain exacerbated by leg bending, transitioning from sitting to standing, and navigating stairs. Physical examination revealed paralumbar tenderness, restricted lumbar ROM, positive straight leg raise on the left, motor weakness (4/5) in the left lower extremity, and dermatomal deficit in L4-S1 distribution. MRI from December 27, 2024, demonstrated degenerative lumbar scoliosis, L4/5 and L5/S1 spondylosis with moderate to severe stenosis, bilateral foraminal stenosis, and degenerative changes from L1-S1. Following comprehensive discussion of treatment options, risks, and benefits, patient agreed to proceed with L4-S1 LEFT LAMINOFORAMINOTOMY. Patient was instructed to follow up with PCP for surgical clearance, continue home exercises, heat/ice therapy, and maintain current medications. Description of Procedure: L4-S1 LEFT MINIMALLY INVASIVE LAMINOFORAMINOTOMY The patient was seen and examined in the preoperative area. All preoperative protocols were followed. Informed consent was obtained, risks and benefits of the procedure were discussed at length. Risks including bleeding, infection, damage to the surrounding tissue, and risk of reoperation were discussed with the patient. Risk of anesthesia up to and including was discussed with the patient. These are outlined in the risk review. They were willing to accept these risks and all the risks of surgery. The patient was given a weight-based dose of antibiotics in the form of 2 g Ancef. The patient was seen and evaluated by the anesthesia team who deemed them fit for surgery. The site was marked, the patient was willing to proceed with the procedure. The patient was transferred to the operative suite by the Department of anesthesia. They were then drifted off to sleep by the department anesthesia and GETA was performed. The patient tolerated this well. Once confirmation of lines and ventilation the patient was transferred to a prone Rajesh table very carefully. All bony prominences including wrists, elbows, axilla, chest, hips, and thighs, and feet were padded very well. Special attention was paid to the genitalia, and these were padded accordingly. SCDs were placed on bilateral lower extremities and were connected. Arms were well padded and placed on arm boards up and out in the 90/90 position. Once in position, again we confirmed good ventilation capabilities and that lines were running appropriately. The patient's Lumbar spine was then exposed. 1010s were placed outlining the incision site. Standard alcohol was used to clean the incision site and allowed to dry. C-arm was used to needle localize the pedicles at L4-S1 and bio-rad the patient and confirm level for incision which was marked with a skin marker. Operative briefing was performed with all teams and everyone in agreement to proceed. The patient was then prepped and draped in a normal sterile fashion. Timeout was then performed, and all parties agreed with the procedure to be performed. Biplanar fluoroscopy was used to localize the L4-S1 levels and a left paramedian skin incision was made over this area. Initial dilator was sent down and fluoroscopy confirmed levels in AP and lateral views. I then sequentially dilated up to 26 mm and placed a 70 mm x 22 mm retractor tube which was secured to the table with a table arm. Microscope was then brought in for visualization. Limited myomectomy was performed over the facet joints, pars, and lamina of L4, L5, and S1. Lawson-laminotomy, partial medial facetectomy, and foraminotomy were performed at L4-5 and L5-S1 using high-speed conor and Kerrison rongeur. The ligamentum flavum was removed with Kerrison and curette. Dura and roots were protected throughout the procedure. The neural foramina were carefully decompressed to ensure adequate space for the exiting nerve roots. Meticulous hemostasis was achieved using bipolar cautery. The area was irrigated thoroughly. The tubular retractor was then removed under direct visualization. The surgical bed was inspected, and all roots were found to have ample room and were adequately decompressed along with the dura. There were no apparent injuries. Retractors were then removed. The wound was copiously irrigated with normal saline solution. The deep fascia was closed with 0 Vicryl. Deep subcutaneous tissue was closed with 0 Vicryl and superficial with 2-0 Vicryl. Subcuticular closure was performed with 4-0 Monocryl. The wound edges approximated well. The wound was then cleaned and covered with a sterile dressing. The patient was then transferred off the table back to their hospital bed atraumatically. They were extubated by the department of anesthesia. They were then transferred to PACU in stable condition having tolerated the procedure with no complications.
== END 2025-02-17 17:20 | disposition home or self-care (01) ==
LOC: OR 10:34
PROVIDERS: ATTEND Orthopaedic Surgery
DX: M47.26 Other spondylosis with radiculopathy, lumbar region (principal); M47.27 Other spondylosis with radiculopathy, lumbosacral region; M48.062 Spinal stenosis, lumbar region with neurogenic claudication; M48.07 Spinal stenosis, lumbosacral region; M41.56 Other secondary scoliosis, lumbar region; K40.90 Unilateral inguinal hernia, without obstruction or gangrene, not specified as recurrent; I12.9 Hypertensive chronic kidney disease with stage 1 through stage 4 chronic kidney disease, or unspecified chronic kidney disease; N18.31 Chronic kidney disease, stage 3a; E78.5 Hyperlipidemia, unspecified; G40.909 Epilepsy, unspecified, not intractable, without status epilepticus; K21.9 Gastro-esophageal reflux disease without esophagitis; Z91.89 Other specified personal risk factors, not elsewhere classified; Z79.82 Long term (current) use of aspirin; Z79.899 Other long term (current) drug therapy; Z87.891 Personal history of nicotine dependence; Z82.61 Family history of arthritis; Z88.0 Allergy status to penicillin; Z88.2 Allergy status to sulfonamides; Z88.8 Allergy status to other drugs, medicaments and biological substances
CPT/HCPCS: 63047; 63048; 86900; 86901; 86850; 72100; J0330; J2710; J0690; J2405; J2003; J3010; J1171; J2704; J1596